=== PATIENT | male | born 1945 | race Caucasian/White ===

== ENCOUNTER 2018-04-05 01:23 | Outpatient (CLI) | payer MEDICARE, BC, SELFPAY ==
--- NOTE | 2018-04-05 09:00 | DI.RAD_ITS ---
SYMPTOMS/DIAGNOSIS: S/P RIGHT VIDEO-ASSISTED THORACIC SURGERY WEDGE RESECTION, ? PNEUMOTHORAX, EFFUSION OR CHANGES CHEST X-RAY, PA AND LATERAL: Comparison examination is from [facility] dated . The heart size is stable. Pulmonary vasculature is within normal limits. The left lung remains clear and well expanded without effusion or pneumothorax. There has been improvement in the opacities in the right lung with persistent linear areas likely reflecting, particularly in the lower lung field. No definite right pleural effusion is seen. No right pneumothorax is identified. Old right rib fractures are noted. IMPRESSION: Continued improvement in appearance of the right lung with probable residual scarring or atelectasis. No new infiltrates, effusions or pneumothoraces are identified.
== END 2018-04-05 01:43 ==
PROVIDERS: Visit Provider Thoracic Surgery (Cardiothoracic Vascular Surgery)
DX: J98.4 Other disorders of lung (principal); Z98.890 Other specified postprocedural states
CPT/HCPCS: 71046

== ENCOUNTER 2021-07-05 01:09 | Outpatient (CLI) | payer OTHER, SELFPAY ==
--- NOTE | 2021-07-05 10:00 | DI.MAMMO_ITS ---
Exam(s) US BREAST LT COMPLETE MAMMO DIAGNOSTIC BI EXAM: MAMMO DIAGNOSTIC BI and ultrasound breast LT complete CLINICAL HISTORY: MASTODYNIA, N64.4,LT BREAST ENLGMENT,PALPABLE LUMP/THICKENING [id number]. TECHNIQUE: Craniocaudal and mediolateral oblique Full Field Digital Mammography views with Computer Aided Diagnosis followed by Tomosynthesis and left breast ultrasound. COMPARISON: No previous for comparison. FINDINGS: Mammography/Tomosynthesis: Masses/Architectural Distortion: There is tissue seen in the retroareolar region of both breasts cons istent with gynecomastia. No masses identified. Microcalcifictions: No suspicious pleomorphic-type are seen. Skin Thickening/Nipple Retraction: None. Left complete breast US: Echotexture: Normal appearance of the glandular tissue. Shadowing: No suspicious foci. Cyst: None. Solid lesions: None seen. Ductal dilation: None. IMPRESSION: 1. Note is made of bilateral gynecomastia, left greater than right. 2. No evidence of malignancy or fluid collection/hematoma is seen. 3. The findings were discussed with the patient on the date of the examination. BI-RADS Category 2 - Benign Findings Breast Density - Category B - Scattered areas of fibroglandular density Breast density Category C or D implies that the patient has dense breast tissue. Dense breast tissue can make it harder to find cancer on a mammogram. Dense breast tissue is also associated with an incr eased risk of breast cancer. This information about the result of the mammogram report was provided to the patient to raise their awareness. Use this report when you speak with the patient about their risks for breast cancer, which includes their family history. At that time, you may recommend additional screening tests (Ultrasoun d or MRI) as these tests may add significant information. A negative radiographic report should not delay biopsy if a dominant or clinically suspicious mass is present. Up to ten percent of cancers are not identified on mammography. A negative report may reinforce clinical impression. Adenosis and dense breasts may obscure an underlying neoplasm. False positive reports average 6 to 10%. Patient will receive a letter notifying them of these results.
== END 2021-07-05 01:29 ==
PROVIDERS: Visit Provider Nurse Practitioner Primary Care
DX: N64.4 Mastodynia (principal); N62 Hypertrophy of breast; N64.59 Other signs and symptoms in breast
CPT/HCPCS: 76642; 77062; 77066; G0279

== ENCOUNTER 2022-06-12 09:53 | Inpatient (IN) | payer OTHER, SELFPAY ==
[2022-06-12] VITALS (23 sets, daily range): BP systolic 106–125; BP diastolic 53–77; PULSE 77–108; RESP 2–44; TEMP 36.8–37.3; O2SAT 81–94
--- NOTE | 2022-06-12 10:14 | RT.EKG_ITS ---
APPROVED REPORT Exam: Resting ECG Reason for Exam: sob Patient Location: E HR:95 bpm ECG Measurements Heart Rate 95 AXIS NV 154 P 38 QRSd 105 QRS -64 QT 390 T 41 QTc 491 Conclusion Sinus rhythm. MAIN, consider biatrial enlargement. LAD, consider left anterior fascicular block. Repol abnrm lateral leads...ST dep, T neg, I aVL V5 V6
--- NOTE | 2022-06-12 10:15 | DI.RAD_ITS ---
Exam(s) XR PORTABLE CHEST AP EXAM: XR PORTABLE CHEST AP CLINICAL HISTORY: cough, recent PNA TECHNIQUE: 2D digital imaging was performed of the chest. One image was obtained. An AP view was ob tained. COMPARISON: CR XR CHEST 2V PA LATERAL from 04/05/2018 FINDINGS: MEDIASTINUM: Normal. HEART: Normal. PULMONARY VASCULATURE: Normal. LUNGS: There is a multifocal infiltrate present with relative sparing of the left upper lobe. PLEURAL SPACE: No pleural effusion or pneumothorax. BONE:Within normal limits for the patient's age. OTHER FINDINGS:Normal. IMPRESSION: Multifocal pneumonia. DATA REPOSITORY: RADIATION DOSE DELIVERED:
--- NOTE | 2022-06-12 10:27 | W.ED.GENAD ---
Discharge Plan Disposition Patient Disposition: Admit to [facility] Condition: Stable Discharge Details Clinical Impression: Pneumonia Primary Care Provider: Unknown,Unknown ED Provider: Ray Love Home Meds and New Rx's Prescriptions: No Action aspirin [Aspir-81] 81 MG tablet,delayed release (DR/EC) 81 mg PO DAILY trazodone 100 MG tablet 150 mg PO HS fluoxetine 20 MG capsule 40 mg PO DAILY metoprolol tartrate 25 MG tablet 12.5 mg PO BID simvastatin 10 MG tablet 10 mg PO DAILY clopidogrel [Plavix] 75 MG tablet 75 mg PO DAILY warfarin 5 MG tablet 5 mg PO DIRECTED Label Comments: 07/23/15- pt has variable dose amoxicillin-pot clavulanate 1 TAB tablet 1 ea PO BID Qty: 14 0RF Medical Decision Making This is a 76-year-old male who states he was seen at an outlying institution approximately 3 weeks ago and diagnosed with pneumonia. He was given 2 antibiotics and a burst of prednisone. He states that he lost approximately 4 days of the antibiotics but otherwise finished that treatment, felt better for approximately 1 week, now has days of recurrent cough, congestion, shortness of breath and exertional intolerance. He has a history of COPD on home oxygen of 3 L and typically has oxygenation approximately 88%. He arrives to the ER with a temp of 37, blood pressure 106/64, pulse in the 90s, respiratory rate 26-30 and oxygenating 88% on 5 L nasal cannula. His exam reveals increased work of breathing, rhonchi and end expiratory wheeze present. Differential gnosis includes COPD exacerbation, recurrent pneumonia. Patient had IV access established, given steroids, DuoNeb updraft and referred for laboratory testing and chest x-ray. White blood cell count is elevated at 22, hematocrit 37, platelets 326. There is left shift present. Electrolytes are unremarkable, renal function within normal limits and LFTs within normal limits as well. Troponin negative. SARS-CoV-2/influenza/RSV swabs are negative. Chest x-ray reveals bilateral infiltrates present. Given patient's chronic disease, recent partial treatment with antibiotics, I have initiated parenteral antibiotics with Zosyn. HPI General Mode of arrival: ambulatory. Date/Time Provider Initiated Documentation: 06/12/22 10:20. Limitations to Documentation: no limitations. Information obtained by: patient and family. History of Present Illness 76 year old M presents to the emergency department with the chief complaint of Cough and shortness of breath, described as moderate, Quality is described as dull, and is localized to the chest. Patient reports no radiation. Patient started experiencing this day(s) and it has been intermittent. Rest improves symptom(s), Movement worsens symptoms . Patient notes cough and shortness of breath; denies chest pain and fever/chills. Patient did receive the following treatments prior to arrival, none Related Data Home Medications Medication Instructions Recorded Confirmed aspirin 81 mg tablet,delayed 81 mg PO DAILY 03/22/15 06/12/22 release (Aspir-) fluoxetine 20 mg capsule 40 mg PO DAILY 03/22/15 06/12/22 metoprolol tartrate 25 mg tablet 12.5 mg PO BID 03/22/15 06/12/22 trazodone 100 mg tablet 150 mg PO HS 03/22/15 06/12/22 clopidogrel 75 mg tablet (Plavix) 75 mg PO DAILY 07/23/15 06/12/22 simvastatin 10 mg tablet 10 mg PO DAILY 07/23/15 06/12/22 warfarin 5 mg tablet 5 mg PO DIRECTED 07/23/15 06/12/22 amoxicillin 875 mg-potassium 1 ea PO BID #14 tabs 10/13/16 clavulanate 125 mg tablet Previous Rx's Medication Instructions Recorded amoxicillin 875 mg-potassium 1 ea PO BID #14 tabs 10/13/16 clavulanate 125 mg tablet Allergies Allergy/AdvReac Type Severity Reaction Status Date / Time No Known Allergies Allergy Unverified 06/12/22 10:10 General Stated Complaint: SOB MADDIE: 3 Review of Systems Narrative: 8 systems reviewed and otherwise negative, recently finished 10 days of antibiotics and burst of prednisone, finished approximate 2 weeks ago. PFSH All Active Problems (Updated 06/12/22 @ 11:49 by Ray Love MD) Pneumonia (Acute) Social History Smoking/Tobacco Use Status: Former Tobacco Use Smoking risk assessment performed?: Yes Alcohol Intake: never Drug use: Never Do you feel safe at home: Yes Do you feel safe in your relationship?: Yes Exam Narrative Exam Narrative: GEN: awake, alert, oriented 3. Pleasant, well groomed, interactive. HEAD: Normocephalic, atraumatic ENT: Mucous membranes moist, oropharynx unremarkable, External ear exam unremarkable EYES: PERRL, EOMI NECK: Full ROM, no TARAN, no menigismus CHEST/RESP: Nontender, bilateral end expiratory wheeze, increased work of breathing, tachypnea present CARDIOVASCULAR: Regular and tachycardic, no murmur, rub evangelina. 2+ Rad pulse bilateral ABDOMEN: Soft, nontender, no mass. +Bowel sounds EXT: Full ROM, no edema, no rash Neuro: Grossly normal neurologic exam, conversant, interactive. Psych: Speech fluent, thoughts congruent, affect normal Course Vital Signs Vital signs: Vital Signs Temperature 37.0 C 06/12/22 10:05 Pulse 98 H 06/12/22 10:05 Respiratory Rate 26 H 06/12/22 10:05 Blood Pressure 106/64 06/12/22 10:05 Pulse Oximetry 88 L 06/12/22 10:05 Temperature 37.0 C 06/12/22 10:05 Temperature Source Tympanic 06/12/22 10:05 Pulse 98 H 06/12/22 10:05 Respiratory Rate 30 H 06/12/22 10:19 Respiratory Effort 06/12/22 10:19 Respiratory Depth Shallow 06/12/22 10:19 Respiratory Pattern Tachypnea 06/12/22 10:19 Blood Pressure 106/64 06/12/22 10:05 Blood Pressure Position Sitting 06/12/22 10:05 Pulse Oximetry 88 L 06/12/22 10:05 Oxygen Delivery Method Nasal Cannula 06/12/22 10:05 Oxygen Flow Rate 3 06/12/22 10:05 Pain Level 0 06/12/22 10:05
[2022-06-12 10:36] LABS: Abs Immature Grans 0.56 10^3/uL (0.0-0.06); Absolute Eosinophil Count 0.02 10^3/uL (0.0-0.7); Absolute Lymphocyte Count 1.65 10^3/uL (1.2-3.4); Basophils % 0.5; Eosinophils % 0.1; HCT 37.2 % (40.0-50.0); HGB 12.3 g/dL (13.5-17.5); Immature Grans % 2.5; Lymphocytes % 7.4; MCH 30.4 pg (27.0-33.0); MCHC 33.1 % (32.0-36.0); MCV 92 fL (80-95); MPV 9.5 fL (8.0-11.0); Monocytes % 4.8; Neutrophils % 84.7; Platelet Count 326 10^3/uL (130-400); RBC 4.04 10^6/uL (4.36-5.78); RDW 17.3 % (11.8-14.1); RDW-SD 58.5 fL; WBC 22.35 10^3/uL (4.4-10.8)
[2022-06-12 10:44] LABS: Absolute Basophil Count 0.11 10^3/uL (0.0-0.2); Absolute Monocyte Count 1.07 10^3/uL (0.1-0.8); Absolute Neutrophil Count 18.93 10^3/uL (1.2-6.7)
[2022-06-12 10:59] LABS: ALT 18 U/L (16-63); AST 28 U/L (15-37); Alkaline Phosphatase 88 U/L (46-116); Anion Gap 8.1 mmol/L (3-11); BUN 18 mg/dL (7-18); Bilirubin, Total 0.6 mg/dL (0.2-1.0); CO2 27.9 mmol/L (21.0-32.0); Calcium 8.4 mg/dL (8.5-10.1); Chloride 100 mmol/L (98-107); Estimated GFR 78.49 (mL/min/1.73m2); Glucose 103 mg/dL (74-106); Magnesium 2.2 mg/dL (1.8-2.4); Sodium 136 mmol/L (136-145); Total Protein 7.3 g/dL (6.4-8.2); Troponin I < 50 ng/L (<or=60)
[2022-06-12] MEDS: methylPREDNISolone SUCC 125 MG VIAL IVP (11:04)
[2022-06-12] MEDS: Albuterol/Ipratropium 3 ML UPD VIAL UPD ×4 (11:04→19:41)
[2022-06-12 11:13] LABS: COVID-19 PCR Negative (Negative); Influenza A PCR Negative (Negative); Influenza B PCR Negative (Negative); RSV PCR Negative (Negative); Source Nasopharynx
[2022-06-12] MEDS: Normal Saline Flush 10 ML SYR IVP ×2 (11:13→19:59)
[2022-06-12 11:27] LABS: Diff Comment Agrees w/ Instrument; RBC Morphology Normal
[2022-06-12] MEDS: PIPERACILLIN/TAZO 3.375 GM in Normal Saline 50 ML IVPB ×3 (11:55→23:16)
[2022-06-12 11:56] LABS: INR 1.2 (0.9-1.1); Prothrombin Time 12.3 sec (9.3-11.0)
[2022-06-12] MEDS: Azithromycin 250 MG TAB 500 MG PO (12:40)
--- NOTE | 2022-06-12 14:59 | HPE_ITS ---
Date of service: 06/12/22 Time of Service: 14:59 Assessment and Plan Assessment and plan (1) Acute and chronic respiratory failure with hypoxia: Status: Acute Assessment and plan: patient is chronically on 2 lpm at rest and 3 lpm w/ activity. He has not had an updated PFT but reports he was scheduled for one to be done in the home until he became ill. I will continue aggressive bronchodilators, pulmonary toiletery and antibiotics as listed below. Patient states he has an advanced directive which his daughter will bring from home. He has indicated that he does not want to be put on life support or have CPR in the event of cardiopulmonary arrest. Critical care time spent interviewing and examining the patient, reviewing studies, discussing case with patient's nurse and consulting physicians was 60 minutes (2) Pneumonia: Status: Acute Assessment and plan: patient recently treated for CAP w/ Augmentin and doxycycline x 7 days back in mid April but recently developed worsening respiratory symptoms of cough and dyspnea greater than his normal (on a good day he states that he is able to take his oxygen off and carry firewood into the home and fill his wood burner stove) however for past week he has been weak, dyspneic w/ minimal activity w/ increasing cough that has become productive of purulent sputum but denies any fever. He has xray evidence of multifocal pneumonia. I agree w/ Dr. Love's choice of Zosyn given his underlying COPD and recent failure of outpatient antibiotics. Patient reports that he was fully immunized for pneumonia and influenza and COVID-19. I recommended addition of azithromycin for coverage of atypical organisms and have adjusted his Zosyn dose. We will attempt sputum culture and get urine for legionella and strep antigen. Aggressive pulmonary toiletry, short course of corticosteroids and scheduled bronchodilator aerosols. [facility] (3) COPD (chronic obstructive pulmonary disease): Status: Chronic Assessment and plan: as above (4) Atherosclerotic peripheral vascular disease: Status: Chronic Assessment and plan: we will try to get pharmacy to reconcile his home meds so we can reorder his anticoagulant. from the external pharmacy search it appears that he is on Xarelto History of Present Illness History of Present Illness Chief Complaint: dyspnea, cough and hypoxia Review of Systems Constitutional Constitutional: Denies chills, Reports fatigue, Denies fever(s), Reports lethargy and Reports poor appetite Eyes Eyes: Reports system reviewed and no additional complaints, except as documented and Reports requires corrective lenses ENT Ears, Nose, Mouth, and Throat: Reports system reviewed and no additional complaints, except as documented Cardiovascular Cardiovascular: Denies chest pain, Denies syncope, Denies pedal edema, Denies leg edema, Reports dyspnea and Reports dyspnea on exertion Respiratory Respiratory: Reports as per HPI, Reports change in phlegm color, Reports chest congestion, Reports cough, Reports excessive phlegm production, Reports dyspnea and Reports dyspnea on exertion Gastrointestinal Gastrointestinal: Reports system reviewed and no additional complaints, except as documented Genitourinary Genitourinary: Reports system reviewed and no additional complaints, except as documented Musculoskeletal Musculoskeletal: Reports system reviewed and no additional complaints, except as documented Integumentary/Breasts Skin/Breast: Reports system reviewed and no additional complaints, except as documented Neurologic Neurologic: Reports system reviewed and no additional complaints, except as documented and Denies syncope Psychiatric Psychiatric: Reports depression Endocrine Endocrine: Reports fatigue Allergic/Immunologic Allergic/Immunologic: Reports system reviewed and no additional complaints, except as documented PFSH All Active Problems (Updated 06/12/22 @ 15:42 by Rian Dexter MD) Acute and chronic respiratory failure with hypoxia (Acute) Depression (Chronic) Atherosclerotic peripheral vascular disease (Chronic) COPD (chronic obstructive pulmonary disease) (Chronic) on home oxygen at 2 to 3 LPM Pneumonia (Acute) Medical History (Updated 06/12/22 @ 15:42 by Rian Dexter MD) Agent orange exposure NHL (non-Hodgkin's lymphoma) Surgical History (Updated 06/12/22 @ 15:32 by Rian Dexter MD) S/P femoral-popliteal bypass surgery S/P lobectomy of lung benign lung nodule Social History (Updated 06/12/22 @ 15:34 by Rian Dexter MD) Smoking/Tobacco Use Status: Former Tobacco Use tobacco type: cigarettes Quit Date: 05/28/15 Pack-years: 100 Tobacco: How many years used: 50 Smoking risk assessment performed?: Yes Alcohol Intake: former Drug use: Never Substance use type: does not use Household members: none Housing: house Number of Children: 2 What is your relationship status?: Panel score (0-1 are the most socially isolated patients): 0 Do you feel safe at home: Yes Do you feel safe in your relationship?: Yes Meds Allergies and Home Medications Allergies Allergy/AdvReac Type Severity Reaction Status Date / Time No Known Allergies Allergy Unverified 06/12/22 10:10 Home Medications Medication Instructions Recorded Confirmed Type aspirin 81 mg tablet,delayed 81 mg PO DAILY 03/22/15 06/12/22 History release (Aspir-) fluoxetine 20 mg capsule 40 mg PO DAILY 03/22/15 06/12/22 History metoprolol tartrate 25 mg tablet 12.5 mg PO BID 03/22/15 06/12/22 History trazodone 100 mg tablet 150 mg PO HS 03/22/15 06/12/22 History clopidogrel 75 mg tablet (Plavix) 75 mg PO DAILY 07/23/15 06/12/22 History simvastatin 10 mg tablet 10 mg PO DAILY 07/23/15 06/12/22 History warfarin 5 mg tablet 5 mg PO DIRECTED 07/23/15 06/12/22 History amoxicillin 875 mg-potassium 1 ea PO BID #14 tabs 10/13/16 Rx clavulanate 125 mg tablet Exam Narrative Exam Narrative: Elderly white male with curtis complexion to his face wears glasses he is alert and oriented person place time circumstance he is mildly dyspneic with moderate conversation but able to answer questions in full sentences. He is using accessory respiratory muscles. HEENT oropharynx noninjected no exudate he has upper dentures he has a few lower teeth that are in poor to fair repair no exudates Neck is supple he has overt external jugular venous distention but no internal jugular distention normal carotid pulses no bruits Lungs with diffuse scattered bilateral expiratory wheezes and rhonchi Heart is regular but tachycardic no murmur rub no thrill heave or gallop Abdomen is obese soft and nontender no palpable masses or bruits Lower extremities without peripheral cyanosis or edema does have scars over both legs from previous femoropopliteal bypass he has palpable pedal pulses no open s ores well-healed scars in both legs Neuro exam grossly intact no focal motor or sensory deficits no focal cranial nerve deficits Results Imaging Chest x-ray: image reviewed (multilobar pneumonia RL>LL) EKG: image reviewed (SR, much baseline artifact; really uninterpretable from ischemic standpoint) Labs Result diagrams: 06/12/22 10:30 06/12/22 10:30 Labs: Laboratory Results - last 24 hr 06/12/22 06/12/22 06/12/22 10:30 10:30 10:30 WBC 22.35 H RBC 4.04 L Hgb 12.3 L Hct 37.2 L MCV 92 MCH 30.4 MCHC 33.1 RDW 17.3 H Plt Count 326 MPV 9.5 Immature Gran % 2.5 Neutrophils % 84.7 Lymphocytes % 7.4 Monocytes % 4.8 Eosinophils % 0.1 Basophils % 0.5 Nucleated RBC % 0.0 Absolute Neutrophils 18.93 H Absolute Lymphocytes 1.65 Absolute Monocytes 1.07 H Absolute Eosinophils 0.02 Absolute Basophils 0.11 RBC Morphology Normal PT 12.3 H INR 1.2 H Sodium 136 Potassium 4.0 Chloride 100 Carbon Dioxide 27.9 Anion Gap 8.1 BUN 18 Creatinine 1.0 Est GFR (CKD-EPI 2020) 78.49 Glucose 103 Calcium 8.4 L Magnesium 2.2 Total Bilirubin 0.6 AST 28 ALT 18 Alkaline Phosphatase 88 Troponin I < 50 Total Protein 7.3 Albumin 2.0 L COVID-19 Source SARS-CoV-2 (PCR) Influenza Type A (PCR) Influenza Type B (PCR) RSV (PCR) 06/12/22 10:32 WBC RBC Hgb Hct MCV MCH MCHC RDW Plt Count MPV Immature Gran % Neutrophils % Lymphocytes % Monocytes % Eosinophils % Basophils % Nucleated RBC % Absolute Neutrophils Absolute Lymphocytes Absolute Monocytes Absolute Eosinophils Absolute Basophils RBC Morphology PT INR Sodium Potassium Chloride Carbon Dioxide Anion Gap BUN Creatinine Est GFR (CKD-EPI 2020) Glucose Calcium Magnesium Total Bilirubin AST ALT Alkaline Phosphatase Troponin I Total Protein Albumin COVID-19 Source Nasopharynx SARS-CoV-2 (PCR) Negative Influenza Type A (PCR) Negative Influenza Type B (PCR) Negative RSV (PCR) Negative Last Vital Signs Temp 37.3 C 06/12/22 14:00 Pulse 96 H 06/12/22 14:00 Resp 24 06/12/22 14:00 BP 119/53 L 06/12/22 14:00 Pulse Ox 88 L 06/12/22 14:00 Time Spent Time spent with Patient: 55-74 minutes Time was spent: preparing to see the patient(eg.review tests), obtaining and/or reviewing separately otained hiistory, ordering medications,tests, procedures, referring, communicating with other health home care companion (Discussion with ED provider Dr. Ray Love), indepentently interpreting results, counseling the patient, care coordination and other (Interviewing his daughter as well as the patient)
--- NOTE | 2022-06-12 15:28 | RESPIRATORY ---
Pt's [facility] Pt has a concentrator and portable tanks at home, does not have one here with him.
[2022-06-12 16:18] LABS: Lab Add On Test DONE
[2022-06-12 17:00] LABS: Procalcitonin 2.9 ng/mL
[2022-06-12] MEDS: guaiFENesin 600 MG TABCR PO (19:59)
--- NOTE | 2022-06-12 20:43 | TELEP.MEDR_ITS ---
Date of service: 06/12/22 Time of Service: 20:43 [facility] Allergies Allergies: No Known Allergies Allergy (Unverified 06/12/22 10:10) Interview Person Interviewed: * Patient Quality Quality of Interview/Accuracy of Medication List: Good Sources Sources used to compile medication list: [facility] Medication List and Retail Pharmacy Changes made to Home Medication List: ADDITIONS: * Tylenol 1000mg po every 6 hours prn * Xarelto 20mg po daily * Ventolin inhaler inhale 2 puffs every 6 hours prn * Advair 250/50mcg inhale 1 puff bid * Spiriva 2.5mcg/puff inhale 2 puffs daily DELETIONS: * Augmentin * Trazodone * Warfarin CHANGES: * Prozac 20mg po daily Additional Notes Additional Notes: * Updated medication list with information provided by patient. Per patient report didnt take medications on 06/12/22 prior to arrival to hospital. Used information from patient and information from [place] med list to complete med rec. Recommended Changes Recommended Changes(reason for recommendation): * None Attestation: The home medication list is now updated to the best of my knowledge and is ready to be reconciled by the provider. Please contact the [facility] Medication Reconciliation Pharmacist at for any questions.
--- NOTE | 2022-06-12 20:43 | TELEP.MEDREC ---
Date of service: 06/12/22 Time of Service: 20:43 [facility] Allergies Allergies: No Known Allergies Allergy (Unverified 06/12/22 10:10) Interview Person Interviewed: Patient Quality Quality of Interview/Accuracy of Medication List: Good Sources Sources used to compile medication list: [employer] Medication List and Retail Pharmacy Changes made to Home Medication List: ADDITIONS: Tylenol 1000mg po every 6 hours prn Xarelto 20mg po daily Ventolin inhaler inhale 2 puffs every 6 hours prn Advair 250/50mcg inhale 1 puff bid Spiriva 2.5mcg/puff inhale 2 puffs daily DELETIONS: Augmentin Trazodone Warfarin CHANGES: Prozac 20mg po daily Additional Notes Additional Notes: Updated medication list with information provided by patient. Per patient report didnt take medications on 06/12/22 prior to arrival to hospital. Used information from patient and [facility] to complete med rec. Recommended Changes Recommended Changes(reason for recommendation): None Attestation: The home medication list is now updated to the best of my knowledge and is ready to be reconciled by the provider. Please contact the [facility] Medication Reconciliation Pharmacist at for any questions.
[2022-06-12] MEDS: Metoprolol 12.5 MG TAB PO (22:32)
[2022-06-12] MEDS: Simvastatin 20 MG TAB 10 MG PO (22:32)
[2022-06-12 22:55] LABS: Legionella Ag Detection Urine Negative (Negative)
[2022-06-13] VITALS (90 sets, daily range): BP systolic 99–124; BP diastolic 46–74; PULSE 58–89; RESP 4–36; TEMP 36.3–36.9; O2SAT 77–97
[2022-06-13] MEDS: Albuterol 2.5 MG/3 ML INH SOLN VIAL UPD ×2 (01:10→05:51)
[2022-06-13 05:28] LABS: BE (Venous) 3 mmol/L (-2-3); HCO3 (Venous) 27 mmol/L (23-28); O2 Sat (Venous) 91 %; TCO2 (Venous) 25 mmol/L (24-29); pCO2 (Venous) 42 mmHg (41-51); pH (Venous) 7.42 (7.31-7.41); pO2 (Venous) 61 mmHg
[2022-06-13 05:31] LABS: Abs Immature Grans 0.35 10^3/uL (0.0-0.06); Absolute Neutrophil Count 14.77 10^3/uL (1.2-6.7); Basophils % 0.4; HCT 33.9 % (40.0-50.0); HGB 11.4 g/dL (13.5-17.5); Immature Grans % 2.1; Lymphocytes % 6.3; MCH 30.7 pg (27.0-33.0); MCHC 33.6 % (32.0-36.0); MCV 91 fL (80-95); MPV 9.5 fL (8.0-11.0); Monocytes % 2.3; Neutrophils % 88.9; Platelet Count 316 10^3/uL (130-400); RBC 3.71 10^6/uL (4.36-5.78); RDW 17.2 % (11.8-14.1); RDW-SD 58.1 fL; WBC 16.61 10^3/uL (4.4-10.8)
[2022-06-13 05:37] LABS: Absolute Basophil Count 0.07 10^3/uL (0.0-0.2); Absolute Lymphocyte Count 1.05 10^3/uL (1.2-3.4); Absolute Monocyte Count 0.38 10^3/uL (0.1-0.8)
[2022-06-13 05:47] LABS: ALT 23 U/L (16-63); AST 36 U/L (15-37); Albumin 1.8 g/dL (3.4-5.0); Alkaline Phosphatase 78 U/L (46-116); Anion Gap 7.9 mmol/L (3-11); BUN 22 mg/dL (7-18); Bilirubin, Total 0.4 mg/dL (0.2-1.0); CO2 27.1 mmol/L (21.0-32.0); Calcium 8.3 mg/dL (8.5-10.1); Chloride 104 mmol/L (98-107); Estimated GFR 78.49 (mL/min/1.73m2); Glucose 183 mg/dL (74-106); Potassium 4.2 mmol/L (3.5-5.1); Sodium 139 mmol/L (136-145); Total Protein 6.9 g/dL (6.4-8.2)
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
[2022-06-13] MEDS: Tiotropium Bromide-Respimat 10 PUFF INH 2 PUFF IH (07:56)
[2022-06-13] MEDS: Budesonide/Formoterol 160/4.5 6 GM 60 PUFF INH IH ×2 (07:56→20:09)
[2022-06-13] MEDS: Albuterol/Ipratropium 3 ML UPD VIAL UPD ×4 (07:57→19:13)
[2022-06-13] MEDS: Aspirin E.C. 81 MG TABEC PO (08:37)
[2022-06-13] MEDS: predniSONE 20 MG TAB 60 MG PO (08:37)
[2022-06-13] MEDS: Clopidogrel 75 MG TAB PO (08:37)
[2022-06-13] MEDS: FLUoxetine 20 MG CAP PO (08:37)
[2022-06-13] MEDS: guaiFENesin 600 MG TABCR PO ×2 (08:38→19:12)
[2022-06-13] MEDS: PIPERACILLIN/TAZO 3.375 GM in Normal Saline 50 ML IVPB ×2 (08:38→16:53)
[2022-06-13] MEDS: Metoprolol 12.5 MG TAB PO ×2 (08:38→19:12)
--- NOTE | 2022-06-13 09:03 | INITIAL_ITS ---
- If Service Date Differs Date of service: 06/13/22 Time of Service: 09:03 Care Management Initial Assess REASON FOR HOSPITALIZATION:: acute and chronic respiratory failure PAST MEDICAL HISTORY/PAST SURGICAL HISTORY:: All Active Problems (Updated 06/12/22 @ 15:42 by Rian Dexter MD). Acute and chronic respiratory failure with hypoxia (Acute). Depression (Chronic). Atherosclerotic peripheral vascular disease (Chronic). COPD (chronic obstructive pulmonary disease) (Chronic). on home oxygen at 2 to 3 LPM. Pneumonia (Acute). Medical History (Updated 06/12/22 @ 15:42 by Rian Dexter MD). Agent orange exposure. NHL (non-Hodgkin's lymphoma). Surgical History (Updated 06/12/22 @ 15:32 by Rian Dexter MD). S/P femoral-popliteal bypass surgery. S/P lobectomy of lung. benign lung nodule PREVIOUS FUNCTIONAL STATUS/SOCIAL/FAMILY SUPPORTS:: Cayetano lives alone in a single family home in [place]. He has 2 children; he has a son Anel who lives in [place] and a daughter Tata who lives close to him. He stated that he and his daughter are very close and that she is supportive. [facility]ano is [facility]. His primary care doctor is Jazmyn Rodriguez out of [place]. He uses home oxygen at 3L at baseline which is provided by the [facility]. CURRENT FUNCTIONAL STATUS:: Cayetano was sitting up in a chair visiting with Tata when CM met with him. He was polite and willing to enage in conversation. Cayetano informed CM that he is [facility] connected and receives [facility] at [facility].He asked that CM contact the clinic to ensure they are aware of his admission and to ensure they have approved a non-[facility] stay. A message was left with the [facility] by to obtain the above verificatiobn. ADVANCE DIRECTIVES:: none on file Has patient been provided with info about the portal/API?: Yes Did the patient sign up for the portal?: No CODE STATUS:: DNR/DNI INSURANCE COVERAGE / FINANCIAL ISSUES:: [facility] CURRENT HOME/COMMUNITY SERVICES/EQUIPMENT:: home oxygen provided by [facility] PRIMARY CARE PHYSICIAN:: Jazmyn Rodriguez. [facility] POTENTIAL DISCHARGE NEEDS:: follow up [facility] community providers PATIENT/FAMILY EDUCATION NEEDS:: Review of discharge instructions, limitations, activity, follow up plan, Ask me Three TRANSPORTATION:: via private vehicle with family PLAN:: Cayetano will likely discharge home with no new services. He will follow up with his community providers and plan of care and transport with family.CM will continue to offer support to Cayetano and assess for discharge planning needs.
--- NOTE | 2022-06-13 09:09 | PGE_ITS ---
Date of Service Date of service: 06/13/22 Time of Service: 09:09 Assessment and Plan Assessment and plan (1) Acute and chronic respiratory failure with hypoxia: Status: Acute Assessment and plan: Secondary to underlying COPD with superimposed community-acquired pneumonia. Continue Zosyn and azithromycin. Urine Legionella antigen was negative urine strep antigen is pending at this time. Patient produced a sputum this morning which was sent for gram stain and culture. Continue aerosolized DuoNeb bronchodilators 4 times daily while awake along with as needed albuterol for acute bronchospasm and dyspnea. Now that his medications have been reconciled I resumed his Advair and his Spiriva. Encourage pulmonary toiletry with use of I- S and acapella. Professional time spent interviewing and examining patient, discussion of goals of care with hospital team (care management, nursing and consulting professionals) was 30 minutes. (2) Pneumonia: Status: Acute Assessment and plan: As above (3) COPD (chronic obstructive pulmonary disease): Status: Chronic Assessment and plan: as above (4) Atherosclerotic peripheral vascular disease: Status: Chronic Assessment and plan: Continue his Eliquis as and Plavix and aspirin patient was not on any GI protection and allegedly had black looking stools. We will monitor his stools for occult blood and I put him on Protonix 40 mg daily. (5) Melena: Status: Suspected Assessment and plan: Patient reports he has had melanotic stools for couple weeks. The only time he seen overt blood in his occasionally when he wipes which sound suspicious for hemorrhoids. Nevertheless we will monitor his stool for occult blood monitor his H&H and if put him on a PPI for GI prophylaxis given his need for multiple anticoagulants and antiplatelets for his PAD. (6) Generalized weakness: Status: Acute Assessment and plan: Secondary to exacerbation of his COPD and his pneumonia. We will request physical therapy consultation and have nursing get him up out of bed to get him more mobile. (7) DVT prophylaxis: Status: Acute Assessment and plan: Patient is chronically on rivaroxaban (8) Discharge planning issues: Status: Acute Assessment and plan: Patient intends to return home once he is medically stable. He may or may not need home health services upon discharge that will be determined by physical therapy prior to discharge. Patient is a DNR/DNI per his request. Family is bringing in his copy of his advance directives Subjective Subjective Interval history since last seen: Patient states that he is feeling somewhat better, less dyspnea. Still w/ harsh cough w/ minimal sputum production this morning. He is afebrile, still hypoxic w/ SPO2 of 85% on 3 lpm when he is not having paroxysms of coughing. Exam Narrative Exam Narrative: Plethoric appearing elderly white male who sitting up breathing and newspaper with intermittent paroxysms of coughing Lungs with scattered expiratory wheezes and rhonchi Heart is regular rate and rhythm Abdomen soft nontender obese nondistended normal bowel sounds Lower extremities without peripheral cyanosis or edema he has bilateral scars from previous femoropopliteal bypass feet are warm and dry with good capillary refill and palpable posterior tibialis pulses Objective Last Vital Signs Temp 36.4 C L 06/13/22 07:41 Pulse 87 06/13/22 08:44 Resp 24 06/13/22 08:44 BP 121/64 06/13/22 08:44 Pulse Ox 87 L 06/13/22 08:44 Laboratory Results - last 24 hr 06/12/22 06/12/22 06/12/22 10:30 10:30 10:30 WBC 22.35 H RBC 4.04 L Hgb 12.3 L Hct 37.2 L MCV 92 MCH 30.4 MCHC 33.1 RDW 17.3 H Plt Count 326 MPV 9.5 Immature Gran % 2.5 Neutrophils % 84.7 Lymphocytes % 7.4 Monocytes % 4.8 Eosinophils % 0.1 Basophils % 0.5 Nucleated RBC % 0.0 Absolute Neutrophils 18.93 H Absolute Lymphocytes 1.65 Absolute Monocytes 1.07 H Absolute Eosinophils 0.02 Absolute Basophils 0.11 RBC Morphology Normal PT 12.3 H INR 1.2 H VBG pH VBG pCO2 VBG pO2 VBG HCO3 VBG Total CO2 VBG O2 Saturation VBG Base Excess Sodium 136 Potassium 4.0 Chloride 100 Carbon Dioxide 27.9 Anion Gap 8.1 BUN 18 Creatinine 1.0 Est GFR (CKD-EPI 2020) 78.49 Glucose 103 Calcium 8.4 L Magnesium 2.2 Total Bilirubin 0.6 AST 28 ALT 18 Alkaline Phosphatase 88 Troponin I < 50 Total Protein 7.3 Albumin 2.0 L Procalcitonin COVID-19 Source SARS-CoV-2 (PCR) Influenza Type A (PCR) Influenza Type B (PCR) Urine Legionella Ag RSV (PCR) Add-On Test Request 06/12/22 06/12/22 06/12/22 10:32 14:28 16:17 WBC RBC Hgb Hct MCV MCH MCHC RDW Plt Count MPV Immature Gran % Neutrophils % Lymphocytes % Monocytes % Eosinophils % Basophils % Nucleated RBC % Absolute Neutrophils Absolute Lymphocytes Absolute Monocytes Absolute Eosinophils Absolute Basophils RBC Morphology PT INR VBG pH VBG pCO2 VBG pO2 VBG HCO3 VBG Total CO2 VBG O2 Saturation VBG Base Excess Sodium Potassium Chloride Carbon Dioxide Anion Gap BUN Creatinine Est GFR (CKD-EPI 2020) Glucose Calcium Magnesium Total Bilirubin AST ALT Alkaline Phosphatase Troponin I Total Protein Albumin Procalcitonin COVID-19 Source Nasopharynx SARS-CoV-2 (PCR) Negative Influenza Type A (PCR) Negative Influenza Type B (PCR) Negative Urine Legionella Ag Negative RSV (PCR) Negative Add-On Test Request DONE 06/12/22 06/13/22 06/13/22 16:17 05:21 05:21 WBC 16.61 H RBC 3.71 L Hgb 11.4 L Hct 33.9 L MCV 91 MCH 30.7 MCHC 33.6 RDW 17.2 H Plt Count 316 MPV 9.5 Immature Gran % 2.1 Neutrophils % 88.9 Lymphocytes % 6.3 Monocytes % 2.3 Eosinophils % 0.0 Basophils % 0.4 Nucleated RBC % 0.0 Absolute Neutrophils 14.77 H Absolute Lymphocytes 1.05 L Absolute Monocytes 0.38 Absolute Eosinophils 0.00 Absolute Basophils 0.07 RBC Morphology PT INR VBG pH VBG pCO2 VBG pO2 VBG HCO3 VBG Total CO2 VBG O2 Saturation VBG Base Excess Sodium 139 Potassium 4.2 Chloride 104 Carbon Dioxide 27.1 Anion Gap 7.9 BUN 22 H Creatinine 1.0 Est GFR (CKD-EPI 2020) 78.49 Glucose 183 H Calcium 8.3 L Magnesium Total Bilirubin 0.4 AST 36 ALT 23 Alkaline Phosphatase 78 Troponin I Total Protein 6.9 Albumin 1.8 L Procalcitonin 2.9 COVID-19 Source SARS-CoV-2 (PCR) Influenza Type A (PCR) Influenza Type B (PCR) Urine Legionella Ag RSV (PCR) Add-On Test Request 06/13/22 05:21 WBC RBC Hgb Hct MCV MCH MCHC RDW Plt Count MPV Immature Gran % Neutrophils % Lymphocytes % Monocytes % Eosinophils % Basophils % Nucleated RBC % Absolute Neutrophils Absolute Lymphocytes Absolute Monocytes Absolute Eosinophils Absolute Basophils RBC Morphology PT INR VBG pH 7.42 H VBG pCO2 42 VBG pO2 61 VBG HCO3 27 VBG Total CO2 25 VBG O2 Saturation 91 VBG Base Excess 3 Sodium Potassium Chloride Carbon Dioxide Anion Gap BUN Creatinine Est GFR (CKD-EPI 2020) Glucose Calcium Magnesium Total Bilirubin AST ALT Alkaline Phosphatase Troponin I Total Protein Albumin Procalcitonin COVID-19 Source SARS-CoV-2 (PCR) Influenza Type A (PCR) Influenza Type B (PCR) Urine Legionella Ag RSV (PCR) Add-On Test Request Time Spent with Patient Time Spent with Patient: 25-34 minutes Time was spent: preparing to see the patient(eg.review tests), obtaining and/or reviewing separately otained hiistory, ordering medications,tests, procedures, referring, communicating with other health childcare center administrator, indepentently interpreting results and care coordination
--- NOTE | 2022-06-13 10:23 | IN_ITS ---
Date of service: 06/13/22 Time of Service: 10:23 PT Notes Visit Reasons: Pneumonia,Acute Hypoxic Respiratory Failure Physical Therapy Inpatient Initial Evaluation Date: 06/13/2022 Referring Doctor: Rian Hill MD PT Orders: PT CONSULT: Exacerbation Chroninc Cond Precautions: Fall. Standard. Activity as tolerated. On chronic oxygen supplementation via NC. Patient Profile/Admitting Diagnosis: Cayetano is a 76-year-old male who presented to the ED on 06/12/2022 due to recurrent cough, congestion, and shortness of breath. Patient was diagnosed with pneumonia 3 weeks ago and was given antibiotic and steroid management but reportedly missed 4 days of antibiotic treatment. Patient is diagnosed with acute on chronic respiratory failure with hypoxia, pneumonia, COPD, atherosclerotic PVD, melena, and generalized weakness. PMHX: All Active Problems?(Updated 06/12/22 @ 15:42 by Rian Dexter MD) Acute and chronic respiratory failure with hypoxia (Acute) Depression (Chronic) Atherosclerotic peripheral vascular disease (Chronic) COPD (chronic obstructive pulmonary disease) (Chronic) on home oxygen at 2 to 3 LPM Pneumonia (Acute) Medical History?(Updated 06/12/22 @ 15:42 by Rian Dexter MD) Agent orange exposure NHL (non-Hodgkin's lymphoma) Surgical History?(Updated 06/12/22 @ 15:32 by Rian Dexter MD) S/P femoral-popliteal bypass surgery S/P lobectomy of lung benign lung nodule Social History/Home Situation: Lives alone in a private home with 2 steps to enter. Daughter and son live close by and have been good support. Patient is independent without assistive device indoors, uses bilateral crutches for outdoor ambulation. On chronic supplemental 2 L of oxygen per minute via NC due to COPD Equipment Owned/DME: Oxygen supplementation, bilateral axillary crutches Subjective: Feels much better compared to yesterday. Reports normal to moderate shortness of breath with ambulation, resolved about 2 to 3 minutes of seated rest. Objective: General Observation: Supine in bed. Telemetry monitoring in place. Oxygen supplementation via NC. Mental Status: Alert and oriented as to person, place, time, and purpose. Able to pay attention, focus, and respond appropriately. Pain: Denies Vital Signs: Oxygen saturation low of 84% on 6 L during the first 50 feet of ambulation using walker; up to 86% on 4 L walking back to room. See notes under gait section. ROM: Right Upper Extremity: Shoulder Flexion WFL. Shoulder abduction WFL. Elbow flexion WFL. Wrist flexion WFL. Functional opening and closing of hand WFL. Left Upper Extremity: Shoulder Flexion WFL. Shoulder abduction WFL. Elbow flexion WFL. Wrist flexion WFL. Functional opening and closing of hand WFL. Right Lower Extremity: Hip flexion WFL. Hip abduction WFL. Knee flexion WFL. Ankle dorsiflexion WFL. Ankle plantarflexion WFL. Left Lower Extremity: Hip flexion WFL. Hip abduction WFL. Knee flexion WFL. Ankle dorsiflexion WFL. Ankle plantarflexion WFL. Strength: Right Upper Extremity: Shoulder flexors 4/5. Shoulder abductors 4/5. Elbow flexors 4/5. Elbow extensors 4/5. Internal Combustion Engine Subassembler strong. Left Upper Extremity: Shoulder flexors 4/5. Shoulder abductors 4/5. Elbow flexors 4/5. Elbow extensors 4/5. Internal Combustion Engine Subassembler strong. Right Lower Extremity: Hip flexors 4/5. Hip abductors 4/5. Knee flexors 4/5. Knee extensors 4/5. Ankle dorsiflexors 4/5. Ankle plantarflexors 4/5. Left Lower Extremity: Hip flexors 4/5. Hip abductors 4/5. Knee flexors 4/5. Knee extensors 4/5. Ankle dorsiflexors 4/5. Ankle plantarflexors 4/5. Bed Mobility/Transfers: Rolling supervision Supine to sit supervision Sit to supine standby assist Sit to stand contact-guard assist Stand to sit contact-guard assist Bed to reclining chair contact-guard assist Reclining chair to bed contact-guard assist Gait: Instructed patient with level surface ambulation of 40 feet +40 feet requiring contact guard assist with IV pole management and wheelchair follow by nurse Gregory. Kanchan decreased. Moderate shortness of breath resolved after about 3 to 4 minutes of seated rest on 6 L of oxygen per minute. Was able to maintain 87 to 88% on 4 L walking back to his room with moderate shortness of breath that took about 5 minutes of seated rest to recover. Balance: Static Sitting: Normal Dynamic Sitting: Normal Static Standing: Fair Dynamic Standing: Fair Special Tests: Mobility Limitations Standardized Measure [employer] AM-PAC 6 clicks Basic Mobility Inpatient Short Form: Raw Score: 18 CMS Score: 47% deficit Informed Consent/Education: Patient was instructed in purpose of PT consult and plan of care. Agreeable to proceed with established PT POC to achieve personal goals. Assessment: Patient requires the use of the front wheel walker for mobility ADL performance to minimize shortness of breath and hypoxic episodes while reducing risk for fall risk. Patient presents with clinical signs and symptoms consistent with current/admitting diagnoses that have resulted to mobility limitations, gait instability, generalized weakness, and overall ADL decline as demonstrated by the following impairment level findings: 1. Decreased strength to b UE/LE major muscle groups 2. Impaired sitting/standing balance 3. Impaired activity tolerance 4. Shortness of breath Impairments are contributing to the following functional limitations: 1. Difficulty with ambulation without assistive device 2. Increased completion time for mobility ADL performance 3. Increased risk for falls 4. Difficulty with managing steps alone safely Patient is assessed as a 77391 moderate complexity based on the following: History: 76-year-old female with past medical history as indicated above Examination: Demonstrable impairment in strength, balance, and mobility level with underlying impairments and functional limitations as exhibited above as well as deficit score of 47% utilizing the [facility] Mobility Inpatient Short Form Presentation: Evolving Decision Makin moderate complexity Goals: Goals X1 week 1. Supine-Sit independent 2. Sit-Supine independent 3. Sit-Stand independent 4. Stand-Sit independent with no AD 5. Bed-Chair independent with no AD 6. Chair-Bed independent with no AD 7. Independent gait on level surface with use of bilateral crutches for at least 300 feet without report of pain nor dyspnea 8. Independent stair negotiation while holding onto B rails for at least 3 steps without report of pain nor dyspnea 9. Independent with home exercise program 10. Good static and dynamic standing balance/tolerance Plan of Care/Treatment Plan: 1-2x/day, 7 days/week x 1 week. Plan of care has been reviewed with the [employer] providing the service under Physical Therapy direction. Initiate Physical Therapy intervention for pain management as needed, strengthening, bed mobility, transfers, gait, stairs, balance training, and use of assistive device. DISCHARGE RECOMMENDATIONS: [] Home with no services [] [X] Home with services. Home when medically cleared by hospitalist. Recommend home health PT services in order to progress mobility level using least restrictive assistive ambulatory device, assess home safety, identify additional equipment needs, and establish a functional maintenance program that will increase ability of patient to remain at home. [] Home with outpatient PT [] [] SNF for continued rehabilitation [] [] Long-Term Care [] [] SNF versus LTC based on ability to participate and progress [] TREATMENT CODE/TIME: [] 31791 x 20 minutes, 9753 0 x 12 minutes beginning at 10:23 AM. Thank you for the opportunity to participate in the care of this patient. Rachel Tsai PT, DPT, CLT [facility] [place], [place]
[2022-06-13] MEDS: Pantoprazole 40 MG TABCR PO (10:59)
[2022-06-13] MEDS: Benzonatate 100 MG CAP 200 MG PO (10:59)
[2022-06-13] MEDS: Lactobacillus Acidophilus CAP 1 CAP PO ×2 (10:59→19:18)
[2022-06-13] MEDS: Multivitamin TAB 1 TAB PO (10:59)
[2022-06-13] MEDS: Benzonatate 200 MG CAP PO ×2 (14:02→19:12)
[2022-06-13] MEDS: AZITHROMYCIN 500 MG in Normal Saline 250 ML 250 MG IVPB (14:02)
[2022-06-13] MEDS: Protein Nutritional Supplement 16 GM 1 OUNCE PACKET PO ×2 (14:02→19:12)
--- NOTE | 2022-06-13 14:32 | PT.INTREAT ---
Date of service: 06/13/22 Time of Service: 14:32 PT Notes Visit Reasons: Pneumonia,Acute Hypoxic Respiratory Failure Physical Therapy Inpatient Treatment Note Date: 06/13/2022 Precautions: Fall. Standard. Activity as tolerated. ? On chronic oxygen supplementation via NC. Subjective: Agreeable tto working with PT again. Objective: General Observation: Seated on bedside chair.? Telemetry monitoring in place.? Oxygen supplementation via NC. Mental Status: Alert and oriented as to person, place, time, and purpose. Able to pay attention, focus, and respond appropriately. Pain: Denies Vital Signs: Oxygen saturation low of 81% on 2 L during the first 60 feet of ambulation using walker; up to 88% on 4 L walking with continued walk.? See notes under gait section. Bed Mobility/Transfers: Rolling supervision Supine to sit supervision Sit to supine standby assist Sit to stand standby assist Stand to sit standby assist Bed to reclining standby assist Reclining chair to bed standby assist Gait: Instructed patient with level surface ambulation of 60 feet + 75 feet requiring stand by assist with IV pole management and wheelchair follow by PT. Kanchan decreased.? Moderate shortness of breath resolved after about 2 minutes of seated rest on 4 L of oxygen per minute.? Was able to maintain 86 to 887% on 4 L while walking with moderate shortness of breath that took about about 2 minutes of seated rest to resolve ? Balance: Static Sitting: Normal Dynamic Sitting: Normal Static Standing: Fair Dynamic Standing: Fair Assessment: Required less oxygen supplementation this afternoon with 4 L/minute compared to this morning's 6 L/minute. Continues to be moderately short of breath but was able to recover in about 2 minutes this session. Will continue to assess oxygen needs and educate on energy conservation techniques while on services. DISCHARGE RECOMMENDATIONS: [] ? Home with no services [] [X] ? Home with services.? Home when medically cleared by hospitalist.? Recommend home health PT services in order to progress mobility level using least restrictive assistive ambulatory device, assess home safety, identify additional equipment needs, and establish a functional maintenance program that will increase ability of patient to remain at home. [] ? Home with outpatient PT [] [] ? SNF for continued rehabilitation [] [] ? [facility] [] [] ? SNF versus LTC based on ability to participate and progress [] TREATMENT CODE/TIME: [] 90482 x 15 minutes, 43304 x 13 minutes beginning at 14:32 PM.
[2022-06-13 15:54] LABS: Streptococcus Pneumoniae Ag, U Negative (Negative)
[2022-06-13] MEDS: Rivaroxaban 10 MG TABLET 20 MG PO (16:54)
[2022-06-13] MEDS: Simvastatin 20 MG TAB 10 MG PO (19:13)
[2022-06-14] VITALS (30 sets, daily range): BP systolic 106–125; BP diastolic 59–81; PULSE 63–96; RESP 1–36; TEMP 36.3–37.1; O2SAT 76–98
[2022-06-14] MEDS: PIPERACILLIN/TAZO 3.375 GM in Normal Saline 50 ML IVPB (00:34)
[2022-06-14 05:56] LABS: Abs Immature Grans 0.39 10^3/uL (0.0-0.06); Absolute Monocyte Count 0.58 10^3/uL (0.1-0.8); Basophils % 0.3; HCT 33.8 % (40.0-50.0); Immature Grans % 2.5; MCH 30.1 pg (27.0-33.0); MCHC 32.5 % (32.0-36.0); MCV 93 fL (80-95); MPV 9.6 fL (8.0-11.0); Monocytes % 3.7; Neutrophils % 83.5; Nucleated RBC 0.1 % (0.0-0.3); Platelet Count 356 10^3/uL (130-400); RBC 3.65 10^6/uL (4.36-5.78); RDW 17.6 % (11.8-14.1); RDW-SD 59.3 fL; WBC 15.75 10^3/uL (4.4-10.8)
[2022-06-14 05:58] LABS: Absolute Basophil Count 0.05 10^3/uL (0.0-0.2); Absolute Lymphocyte Count 1.58 10^3/uL (1.2-3.4); Absolute Neutrophil Count 13.15 10^3/uL (1.2-6.7)
[2022-06-14 06:17] LABS: ALT 31 U/L (16-63); AST 42 U/L (15-37); Albumin 1.8 g/dL (3.4-5.0); Alkaline Phosphatase 79 U/L (46-116); Anion Gap 5.6 mmol/L (3-11); BUN 31 mg/dL (7-18); Bilirubin, Total 0.4 mg/dL (0.2-1.0); CO2 26.4 mmol/L (21.0-32.0); CREATININE 0.9 mg/dL (0.70-1.30); Calcium 8.2 mg/dL (8.5-10.1); Chloride 105 mmol/L (98-107); Estimated GFR 89.07 (mL/min/1.73m2); Glucose 123 mg/dL (74-106); Potassium 4.2 mmol/L (3.5-5.1); Sodium 137 mmol/L (136-145); Total Protein 6.5 g/dL (6.4-8.2)
--- NOTE | 2022-06-14 07:07 | W.PULMPROG ---
Assessment and Plan Assessment and plan (1) COPD exacerbation: Status: Acute (2) Pneumonia: Status: Acute (3) Acute and chronic respiratory failure with hypoxia: Status: Acute Assessment and plan: This is a 76 yo man with COPD and PVD, admitted to ICU for acute on chronic hypoxic respiratory failure due to a pneumonia. It sounds like he had outpatient failure of this pneumonia. His CXR is certainly abnormal, but on prior imaging, he has RLL abnormalities that may be persistent. His Zosyn can be changed to ceftriaxone. He does have some melena and so starting a PPI, particularly in the setting of a prednisone taper is reasonable. He continues to improve but is clinically still having a COPD exacerbation, which should improve with time. Acute on chronic hypoxic respiratory failure - supplementary O2 for sats 88-92% - VibraPEP - IS - out of bed to chair COPD exacerbation - recommend prednisone taper: 60mg for 4 days, 50mg for 4 days, 40mg for 4 days, 30mg for 4 days, 20mg for 4 days, 10mg for 4 days, 5mg for 4 days - recommend follow up with NM broach setter - Genia GUTIERREZ - continue Symbicort and Spiriva Pneumonia -sputum culture non revealing - urine antigens negative - can consider changing zosyn to ceftriaxone, continue azithromycin - Mucinex, tessalon industrial engineering and airway clearance General Date Of Service Date of service: 06/14/22 Time of Service: 07:07 Reason for Consult: Pneumonia COPD Exacerbation Subjective Note Note: Cayetano is feeling well today. His oxygen continues to fluctuate. He feels better but is still short of breath. Exam Narrative Exam Narrative: Gen: NAD, normal respiratory effort, well-nourished HENT: PERRL, nasal turbinates normal without erythema or inflammation, moist oral mucosa, Mallampati 2, No LAD or JVD Chest: No respiratory distress, normal appearance of chest, clear to auscultation bilaterally, diffuse, bilateral expiratory wheeze Heart: regular rate and rhythym, no murmurs, rubs or gallops Abdomen: Non-distended, soft, non tender Extremities: No clubbing, edema, cyanosis, rashes Neuro: AAOx3 , non focal Psych: cooperative, appropriate mental affect Objective Last Vital Signs Temp 37.1 C 06/14/22 03:20 Pulse 69 06/14/22 03:20 Resp 20 06/14/22 03:20 BP 115/64 06/14/22 03:20 Pulse Ox 87 L 06/14/22 03:20 Laboratory Results - last 24 hr 06/12/22 06/14/22 06/14/22 14:28 05:20 05:20 WBC 15.75 H RBC 3.65 L Hgb 11.0 L Hct 33.8 L MCV 93 MCH 30.1 MCHC 32.5 RDW 17.6 H Plt Count 356 MPV 9.6 Immature Gran % 2.5 Neutrophils % 83.5 Lymphocytes % 10.0 Monocytes % 3.7 Eosinophils % 0.0 Basophils % 0.3 Nucleated RBC % 0.1 Absolute Neutrophils 13.15 H Absolute Lymphocytes 1.58 Absolute Monocytes 0.58 Absolute Eosinophils 0.00 Absolute Basophils 0.05 Sodium 137 Potassium 4.2 Chloride 105 Carbon Dioxide 26.4 Anion Gap 5.6 BUN 31 H Creatinine 0.9 Est GFR (CKD-EPI 2020) 89.07 Glucose 123 H Calcium 8.2 L Total Bilirubin 0.4 AST 42 H ALT 31 Alkaline Phosphatase 79 Total Protein 6.5 Albumin 1.8 L Urine Legionella Ag Negative Ur Strep pneumoniae Ag Negative Results Medications Medications: Active Medications Generic Name Dose Route Start Last Admin Trade Name Freq PRN Reason Stop Dose Admin Acetaminophen 0 mg 06/12/22 15:18 Acetaminophen 325 Mg Tab PO Q4H PRN PRN Acidophilus/Pectin 1 cap 06/13/22 09:20 06/13/22 19:18 Lactobacillus Acidophilus Cap PO 1 cap BID ROSA Administration Al Hydrox/Mg Hydrox/Simethicone 30 ml 06/12/22 15:18 Mylanta Suspension 30 Ml Cup PO Q2H PRN PRN Albuterol Sulfate 2.5 mg 06/12/22 15:18 06/13/22 05:51 Albuterol 2.5 Mg/3 Ml Inh Soln Vial UPD 2.5 mg Q2H PRN PRN Administration Albuterol/Ipratropium 3 ml 06/12/22 16:00 06/13/22 19:13 Albuterol/Ipratropium 3 Ml Upd Vial UPD 3 ml QID ROSA Administration Aspirin 81 mg 06/13/22 08:30 06/13/22 08:37 Aspirin E.C. 81 Mg Tabec PO 81 mg DAILY ROSA Administration Benzonatate 200 mg 06/13/22 14:00 06/13/22 19:12 Benzonatate 200 Mg Cap PO 200 mg TID ROSA Administration Budesonide/Formoterol Fumarate 1 puff 06/13/22 08:30 06/13/22 20:09 Budesonide/Formoterol 160/4.5 6 Gm 60 Puff Inh IH 1 puffs BID ROSA Administration Clopidogrel Bisulfate 75 mg 06/13/22 08:30 06/13/22 08:37 Clopidogrel 75 Mg Tab PO 75 mg DAILY ROSA Administration Dimethicone/Zinc Oxide 0 gm 06/12/22 15:18 Chelsie Protect Cream 142 Gm Tube TP PRN PRN Docusate Sodium 100 mg 06/12/22 15:18 Docusate Sodium 100 Mg Cap PO TID PRN PRN Fluoxetine HCl 20 mg 06/13/22 08:30 06/13/22 08:37 Fluoxetine 20 Mg Cap PO 20 mg DAILY ROSA Administration Guaifenesin 600 mg 06/12/22 20:00 06/13/22 19:12 Guaifenesin 600 Mg Tabcr PO 600 mg BID ROSA Administration Piperacillin Sod/Tazobactam 50 mls @ 12.5 mls/hr 06/12/22 16:00 06/14/22 05:40 Sod 3.375 gm/ Sodium Chloride IVPB Infused Q8H ROSA Infusion Protocol Azithromycin 500 mg/ Sodium 250 mls @ 250 mls/hr 06/13/22 14:00 06/14/22 00:44 Chloride IVPB Infused Q24H ROSA Infusion IV Miscellaneous Supplies 1 each 06/12/22 10:30 06/12/22 11:11 Iv Access IV 1 each DIRECTED ROSA Administration Magnesium Hydroxide 30 ml 06/12/22 15:18 Milk Of Magnesia 30 Ml Cup PO DAILY PRN PRN Metoprolol Tartrate 12.5 mg 06/12/22 22:00 06/13/22 19:12 Metoprolol 12.5 Mg Tab PO 12.5 mg BID ROSA Administration Multi-Ingredient Supplement 1 ounce 06/13/22 14:00 06/13/22 19:12 Protein Nutritional Supplement 16 Gm 1 Ounce Packet PO 1 ounce TID ROSA Administration Multivitamins 1 tab 06/13/22 10:00 06/13/22 10:59 Multivitamin Tab PO 1 tab DAILY ROSA Administration Pantoprazole Sodium 40 mg 06/14/22 07:30 Pantoprazole 40 Mg Tabcr PO DAILY@0730 [facility] Polyethylene Glycol 17 gm 06/12/22 15:18 Polyethylene Glycol 3350 17 Gm Packet PO DAILY PRN PRN Constipation Prednisone 20 mg 06/16/22 08:30 Prednisone 20 Mg Tab PO 06/17/22 08:31 DAILY ROSA Prednisone 40 mg 06/14/22 08:30 Prednisone 20 Mg Tab PO 06/15/22 08:31 DAILY ROSA Rivaroxaban 20 mg 06/13/22 17:00 06/13/22 16:54 Rivaroxaban 10 Mg Tablet PO 20 mg DAILY@1700 ROSA Administration Simvastatin 10 mg 06/12/22 22:00 06/13/22 19:13 Simvastatin 20 Mg Tab PO 10 mg QPM ROSA Administration Sodium Chloride 0 ml 06/12/22 10:25 06/12/22 19:59 Normal Saline Flush 10 Ml Syr IVP 10 ml PRN PRN Administration Tiotropium [place] 2 puff 06/13/22 08:30 06/13/22 07:56 Tiotropium [place]-Respimat 10 Puff Inh IH 2 inh DAILY ROSA Administration Allergies No Known Allergies Allergy (Unverified 06/12/22 10:10) Labs Result Diagrams: 06/14/22 05:20 06/14/22 05:20 Labs: 06/13/22 09:00 Sputum - Expectorated Sputum Culture - Pending 06/13/22 09:00 Sputum - Expectorated Gram Stain - Final Laboratory Tests Range/Units 06/12/22 06/12/22 06/12/22 10:30 10:30 10:30 WBC (4.4-10.8) 10^3/uL 22.35 H RBC (4.36-5.78) 10^6/uL 4.04 L Hgb (13.5-17.5) g/dL 12.3 L Hct (40.0-50.0) % 37.2 L MCV (80-95) fL 92 MCH (27.0-33.0) pg 30.4 MCHC (32.0-36.0) % 33.1 RDW (11.8-14.1) % 17.3 H Plt Count (130-400) 10^3/uL 326 MPV (8.0-11.0) fL 9.5 Immature Gran % 2.5 Neutrophils % 84.7 Lymphocytes % 7.4 Monocytes % 4.8 Eosinophils % 0.1 Basophils % 0.5 Nucleated RBC % (0.0-0.3) % 0.0 Absolute Neutrophils (1.2-6.7) 10^3/uL 18.93 H Absolute Lymphocytes (1.2-3.4) 10^3/uL 1.65 Absolute Monocytes (0.1-0.8) 10^3/uL 1.07 H Absolute Eosinophils (0.0-0.7) 10^3/uL 0.02 Absolute Basophils (0.0-0.2) 10^3/uL 0.11 RBC Morphology Normal PT (9.3-11.0) sec 12.3 H INR (0.9-1.1) 1.2 H VBG pH (7.31-7.41) VBG pCO2 (41-51) mmHg VBG pO2 mmHg VBG HCO3 (23-28) mmol/L VBG Total CO2 (24-29) mmol/L VBG O2 Saturation % VBG Base Excess (-2-3) mmol/L Sodium (136-145) mmol/L 136 Potassium (3.5-5.1) mmol/L 4.0 Chloride (98-107) mmol/L 100 Carbon Dioxide (21.0-32.0) mmol/L 27.9 Anion Gap (3-11) mmol/L 8.1 BUN (7-18) mg/dL 18 Creatinine (0.70-1.30) mg/dL 1.0 Est GFR (CKD-EPI 2020) (mL/min/1.73m2) 78.49 Glucose (74-106) mg/dL 103 Calcium (8.5-10.1) mg/dL 8.4 L Magnesium (1.8-2.4) mg/dL 2.2 Total Bilirubin (0.2-1.0) mg/dL 0.6 AST (15-37) U/L 28 ALT (16-63) U/L 18 Alkaline Phosphatase (46-116) U/L 88 Troponin I (<or=60) ng/L < 50 Total Protein (6.4-8.2) g/dL 7.3 Albumin (3.4-5.0) g/dL 2.0 L Procalcitonin ng/mL COVID-19 Source SARS-CoV-2 (PCR) (Negative) Influenza Type A (PCR) (Negative) Influenza Type B (PCR) (Negative) Urine Legionella Ag (Negative) RSV (PCR) (Negative) Ur Strep pneumoniae Ag (Negative) Add-On Test Request Range/Units 06/12/22 06/12/22 06/12/22 10:32 14:28 16:17 WBC (4.4-10.8) 10^3/uL RBC (4.36-5.78) 10^6/uL Hgb (13.5-17.5) g/dL Hct (40.0-50.0) % MCV (80-95) fL MCH (27.0-33.0) pg MCHC (32.0-36.0) % RDW (11.8-14.1) % Plt Count (130-400) 10^3/uL MPV (8.0-11.0) fL Immature Gran % Neutrophils % Lymphocytes % Monocytes % Eosinophils % Basophils % Nucleated RBC % (0.0-0.3) % Absolute Neutrophils (1.2-6.7) 10^3/uL Absolute Lymphocytes (1.2-3.4) 10^3/uL Absolute Monocytes (0.1-0.8) 10^3/uL Absolute Eosinophils (0.0-0.7) 10^3/uL Absolute Basophils (0.0-0.2) 10^3/uL RBC Morphology PT (9.3-11.0) sec INR (0.9-1.1) VBG pH (7.31-7.41) VBG pCO2 (41-51) mmHg VBG pO2 mmHg VBG HCO3 (23-28) mmol/L VBG Total CO2 (24-29) mmol/L VBG O2 Saturation % VBG Base Excess (-2-3) mmol/L Sodium (136-145) mmol/L Potassium (3.5-5.1) mmol/L Chloride (98-107) mmol/L Carbon Dioxide (21.0-32.0) mmol/L Anion Gap (3-11) mmol/L BUN (7-18) mg/dL Creatinine (0.70-1.30) mg/dL Est GFR (CKD-EPI 2020) (mL/min/1.73m2) Glucose (74-106) mg/dL Calcium (8.5-10.1) mg/dL Magnesium (1.8-2.4) mg/dL Total Bilirubin (0.2-1.0) mg/dL AST (15-37) U/L ALT (16-63) U/L Alkaline Phosphatase (46-116) U/L Troponin I (<or=60) ng/L Total Protein (6.4-8.2) g/dL Albumin (3.4-5.0) g/dL Procalcitonin ng/mL COVID-19 Source Nasopharynx SARS-CoV-2 (PCR) (Negative) Negative Influenza Type A (PCR) (Negative) Negative Influenza Type B (PCR) (Negative) Negative Urine Legionella Ag (Negative) Negative RSV (PCR) (Negative) Negative Ur Strep pneumoniae Ag (Negative) Negative Add-On Test Request DONE Range/Units 06/12/22 06/13/22 06/13/22 16:17 05:21 05:21 WBC (4.4-10.8) 10^3/uL 16.61 H RBC (4.36-5.78) 10^6/uL 3.71 L Hgb (13.5-17.5) g/dL 11.4 L Hct (40.0-50.0) % 33.9 L MCV (80-95) fL 91 MCH (27.0-33.0) pg 30.7 MCHC (32.0-36.0) % 33.6 RDW (11.8-14.1) % 17.2 H Plt Count (130-400) 10^3/uL 316 MPV (8.0-11.0) fL 9.5 Immature Gran % 2.1 Neutrophils % 88.9 Lymphocytes % 6.3 Monocytes % 2.3 Eosinophils % 0.0 Basophils % 0.4 Nucleated RBC % (0.0-0.3) % 0.0 Absolute Neutrophils (1.2-6.7) 10^3/uL 14.77 H Absolute Lymphocytes (1.2-3.4) 10^3/uL 1.05 L Absolute Monocytes (0.1-0.8) 10^3/uL 0.38 Absolute Eosinophils (0.0-0.7) 10^3/uL 0.00 Absolute Basophils (0.0-0.2) 10^3/uL 0.07 RBC Morphology PT (9.3-11.0) sec INR (0.9-1.1) VBG pH (7.31-7.41) VBG pCO2 (41-51) mmHg VBG pO2 mmHg VBG HCO3 (23-28) mmol/L VBG Total CO2 (24-29) mmol/L VBG O2 Saturation % VBG Base Excess (-2-3) mmol/L Sodium (136-145) mmol/L 139 Potassium (3.5-5.1) mmol/L 4.2 Chloride (98-107) mmol/L 104 Carbon Dioxide (21.0-32.0) mmol/L 27.1 Anion Gap (3-11) mmol/L 7.9 BUN (7-18) mg/dL 22 H Creatinine (0.70-1.30) mg/dL 1.0 Est GFR (CKD-EPI 2020) (mL/min/1.73m2) 78.49 Glucose (74-106) mg/dL 183 H Calcium (8.5-10.1) mg/dL 8.3 L Magnesium (1.8-2.4) mg/dL Total Bilirubin (0.2-1.0) mg/dL 0.4 AST (15-37) U/L 36 ALT (16-63) U/L 23 Alkaline Phosphatase (46-116) U/L 78 Troponin I (<or=60) ng/L Total Protein (6.4-8.2) g/dL 6.9 Albumin (3.4-5.0) g/dL 1.8 L Procalcitonin ng/mL 2.9 COVID-19 Source SARS-CoV-2 (PCR) (Negative) Influenza Type A (PCR) (Negative) Influenza Type B (PCR) (Negative) Urine Legionella Ag (Negative) RSV (PCR) (Negative) Ur Strep pneumoniae Ag (Negative) Add-On Test Request Range/Units 06/13/22 06/14/22 06/14/22 05:21 05:20 05:20 WBC (4.4-10.8) 10^3/uL 15.75 H RBC (4.36-5.78) 10^6/uL 3.65 L Hgb (13.5-17.5) g/dL 11.0 L Hct (40.0-50.0) % 33.8 L MCV (80-95) fL 93 MCH (27.0-33.0) pg 30.1 MCHC (32.0-36.0) % 32.5 RDW (11.8-14.1) % 17.6 H Plt Count (130-400) 10^3/uL 356 MPV (8.0-11.0) fL 9.6 Immature Gran % 2.5 Neutrophils % 83.5 Lymphocytes % 10.0 Monocytes % 3.7 Eosinophils % 0.0 Basophils % 0.3 Nucleated RBC % (0.0-0.3) % 0.1 Absolute Neutrophils (1.2-6.7) 10^3/uL 13.15 H Absolute Lymphocytes (1.2-3.4) 10^3/uL 1.58 Absolute Monocytes (0.1-0.8) 10^3/uL 0.58 Absolute Eosinophils (0.0-0.7) 10^3/uL 0.00 Absolute Basophils (0.0-0.2) 10^3/uL 0.05 RBC Morphology PT (9.3-11.0) sec INR (0.9-1.1) VBG pH (7.31-7.41) 7.42 H VBG pCO2 (41-51) mmHg 42 VBG pO2 mmHg 61 VBG HCO3 (23-28) mmol/L 27 VBG Total CO2 (24-29) mmol/L 25 VBG O2 Saturation % 91 VBG Base Excess (-2-3) mmol/L 3 Sodium (136-145) mmol/L 137 Potassium (3.5-5.1) mmol/L 4.2 Chloride (98-107) mmol/L 105 Carbon Dioxide (21.0-32.0) mmol/L 26.4 Anion Gap (3-11) mmol/L 5.6 BUN (7-18) mg/dL 31 H Creatinine (0.70-1.30) mg/dL 0.9 Est GFR (CKD-EPI 2020) (mL/min/1.73m2) 89.07 Glucose (74-106) mg/dL 123 H Calcium (8.5-10.1) mg/dL 8.2 L Magnesium (1.8-2.4) mg/dL Total Bilirubin (0.2-1.0) mg/dL 0.4 AST (15-37) U/L 42 H ALT (16-63) U/L 31 Alkaline Phosphatase (46-116) U/L 79 Troponin I (<or=60) ng/L Total Protein (6.4-8.2) g/dL 6.5 Albumin (3.4-5.0) g/dL 1.8 L Procalcitonin ng/mL COVID-19 Source SARS-CoV-2 (PCR) (Negative) Influenza Type A (PCR) (Negative) Influenza Type B (PCR) (Negative) Urine Legionella Ag (Negative) RSV (PCR) (Negative) Ur Strep pneumoniae Ag (Negative) Add-On Test Request
[2022-06-14] MEDS: Tiotropium Bromide-Respimat 10 PUFF INH 2 PUFF IH (08:12)
[2022-06-14] MEDS: Budesonide/Formoterol 160/4.5 6 GM 60 PUFF INH IH ×2 (08:12→19:55)
[2022-06-14] MEDS: Pantoprazole 40 MG TABCR PO (08:20)
[2022-06-14] MEDS: Albuterol/Ipratropium 3 ML UPD VIAL UPD ×4 (08:41→20:05)
[2022-06-14] MEDS: cefTRIAXone 1 GM/50 ML BAG IV (09:00)
--- NOTE | 2022-06-14 09:18 | PGE_ITS ---
Date of Service Date of service: 06/14/22 Time of Service: 09:18 Assessment and Plan Assessment and plan (1) Acute and chronic respiratory failure with hypoxia: Status: Acute Assessment and plan: Secondary to underlying COPD with superimposed community-acquired pneumonia. Sputum gram stain shows normal niraj with rare epithelial cells and mixed gram- positive niraj. Sputum mycoplasma PCR is pending at this time. Fluid test was negative on admission for SARS-CoV-2 as well as influenza type a and B and RSV. Urine Legionella and urine strep antigen were negative. This point he can be downgraded on his antibiotics from Zosyn to Rocephin and I will switch his IV and azithromycin to oral. Continue supplemental oxygen with titration with a target SPO2 of 88 to 90%. En courage use of pulmonary toiletry including I-S and acapella. Per my discussion with RT and the patient and does not seem the chest percussion is really improving and immobilization sputum therefore we will discontinue chest percussion. Continue Mucinex and Tessalon Perles. Encourage him to get out of bed. Consulted physical therapy to work with him. He is now currently on medical/surgical floor status. Anticipate he will need hospitalization for parenteral antibiotics for couple more days and then transition over to oral antibiotics upon discharge. Continue prednisone at 40 mg daily. Patient was not steroid-dependent and should not need a prolonged taper. Continue his LABA/ICS (Advair Diskus) as well as his LAMA (Spiriva), continue scheduled aerosolized bronchodilators 4 times daily while awake and every 2 hours as needed Patient's case discussed with Dr. Didi Mcconnell. Professional time spent interviewing and examining patient, discussion of goals of care with hospital team (care management, nursing and consulting professionals) was 35 minutes. (2) Pneumonia: Status: Acute Assessment and plan: As above (3) COPD (chronic obstructive pulmonary disease): Status: Chronic Assessment and plan: as above (4) Atherosclerotic peripheral vascular disease: Status: Chronic Assessment and plan: Continue his Eliquis as and Plavix and aspirin patient was not on any GI protection and allegedly had black looking stools. We will monitor his stools f or occult blood and I put him on Protonix 40 mg daily. (5) Melena: Status: Suspected Assessment and plan: Patient reports he has had melanotic stools for couple weeks. The only time he seen overt blood in his occasionally when he wipes which sound suspicious for hemorrhoids. Nevertheless we will monitor his stool for occult blood monitor his H&H and if put him on a PPI for GI prophylaxis given his need for multiple anticoagulants and antiplatelets for his PAD. Patient is now on Protonix for GI protection and should remain on it as an outpatient. No reported melanotic stools overnight. H&H remained stable. (6) Generalized weakness: Status: Acute Assessment and plan: Secondary to exacerbation of his COPD and his pneumonia. We will request physical therapy consultation and have nursing get him up out of bed to get him more mobile. (7) DVT prophylaxis: Status: Acute Assessment and plan: Patient is chronically on rivaroxaban (8) Discharge planning issues: Status: Acute Assessment and plan: Patient intends to return home once he is medically stable. He may or may not need home health services upon discharge that will be determined by physical therapy prior to discharge. Patient is a DNR/DNI per his request. Family is bringing in his copy of his advance directives Subjective Subjective Patient reports: no new complaints and feels better Interval history since last seen: Cayetano feels less dyspnea, cough is nonproductive. His oxygen saturation fluctuates. His baseline oxygen saturation at home is only 85 to 86% on 2 lpm. Here is running 92% on 3 lpm but currently he is on 2 lpm and his SPO2 is 86 to 87%. Exam Narrative Exam Narrative: Cayetano looks more rested today does not appear to be dyspneic he is not using his accessory respiratory muscles at rest. He does have a plethoric appearance to his face which is chronic. Neck is supple no JVD Lungs with coarse expiratory wheezes but he seems to have improved airflow compared to yesterday with increased breath sounds throughout all lung lopez. Heart regular rate and rhythm no appreciable murmur rub Abdomen is obese soft nontender normal bowel sounds Extremities without peripheral cyanosis or edema. He has palpable pedal pulses. Objective Last Vital Signs Temp 37.1 C 06/14/22 03:20 Pulse 77 06/14/22 08:54 Resp 20 06/14/22 08:54 BP 115/64 06/14/22 03:20 Pulse Ox 92 06/14/22 09:08 Laboratory Results - last 24 hr 06/12/22 06/14/22 06/14/22 14:28 05:20 05:20 WBC 15.75 H RBC 3.65 L Hgb 11.0 L Hct 33.8 L MCV 93 MCH 30.1 MCHC 32.5 RDW 17.6 H Plt Count 356 MPV 9.6 Immature Gran % 2.5 Neutrophils % 83.5 Lymphocytes % 10.0 Monocytes % 3.7 Eosinophils % 0.0 Basophils % 0.3 Nucleated RBC % 0.1 Absolute Neutrophils 13.15 H Absolute Lymphocytes 1.58 Absolute Monocytes 0.58 Absolute Eosinophils 0.00 Absolute Basophils 0.05 Sodium 137 Potassium 4.2 Chloride 105 Carbon Dioxide 26.4 Anion Gap 5.6 BUN 31 H Creatinine 0.9 Est GFR (CKD-EPI 2020) 89.07 Glucose 123 H Calcium 8.2 L Total Bilirubin 0.4 AST 42 H ALT 31 Alkaline Phosphatase 79 Total Protein 6.5 Albumin 1.8 L Ur Strep pneumoniae Ag Negative Time Spent with Patient Time Spent with Patient: 35-49 minutes Time was spent: preparing to see the patient(eg.review tests), ordering medications,tests, procedures, referring, communicating with other health adult daycare coordinator, indepentently interpreting results, counseling the patient and care coordination
[2022-06-14] MEDS: Lactobacillus Acidophilus CAP 1 CAP PO ×2 (09:24→18:48)
[2022-06-14] MEDS: guaiFENesin 600 MG TABCR PO ×2 (09:24→18:48)
[2022-06-14] MEDS: Clopidogrel 75 MG TAB PO (09:24)
[2022-06-14] MEDS: Multivitamin TAB 1 TAB PO (09:24)
[2022-06-14] MEDS: Benzonatate 200 MG CAP PO ×3 (09:24→18:48)
[2022-06-14] MEDS: Aspirin E.C. 81 MG TABEC PO (09:24)
[2022-06-14] MEDS: Azithromycin 250 MG TAB PO (09:24)
[2022-06-14] MEDS: Metoprolol 12.5 MG TAB PO ×2 (09:24→18:47)
[2022-06-14] MEDS: FLUoxetine 20 MG CAP PO (09:25)
[2022-06-14] MEDS: Protein Nutritional Supplement 16 GM 1 OUNCE PACKET PO ×3 (09:25→18:47)
[2022-06-14] MEDS: Normal Saline Flush 10 ML SYR IVP (09:26)
[2022-06-14] MEDS: predniSONE 20 MG TAB 40 MG PO (09:31)
--- NOTE | 2022-06-14 10:02 | PDOC.CMPRO ---
- If Service Date Differs Date of service: 06/14/22 Time of Service: 10:02 Care Management Progress Note S/O:Cayetano was sitting up in bed when CM met with him. He indicated that he has not had a good day. He continues to cough frequently and his O2 saturation levels drop into the low 80s or high 70s. Cayetano did work with PT and was able to ambulate but the exercise induced a coughing fit with a drop in sats. He required a neb treatment after to recover. Cayetano was downgraded to Med-Surg today and moved out of the ICU. CM continues to follow. A: Cayetano is a 76 year old man admitted on 06/12/22 with pneumonia and respiratory failure P:Cayetano will likely discharge home with no new services. He will follow up with his community providers and plan of care and transport with family.CM will continue to offer support to Cayetano and assess for discharge planning needs.
--- NOTE | 2022-06-14 15:54 | PHACLINREV_ITS ---
Pharmacy Admission Review - Admission Clinical Review (Last Updated 06/12/22 @ 15:32 by Rian Dexter MD) Leukocytosis (Acute) COPD exacerbation (Acute) Discharge planning issues (Acute) DVT prophylaxis (Acute) Generalized weakness (Acute) Acute and chronic respiratory failure with hypoxia (Acute) Pneumonia (Acute) No Known Allergies Allergy (Unverified 06/12/22 10:10) Resuscitation Status DNR/DNI Height 5 ft 5 in Weight 79.3 kg - Comments Comments/Follow Ups: on prednisone taper. Reporting some melena, protonix 40 mg daily added. Oral vanco started today, cdif PCR pending - Renal Dosing Renal Dosing: BUN 31 mg/dL (7-18) H 06/14/22 05:20 Creatinine 0.9 mg/dL (0.70-1.30) 06/14/22 05:20 Medications needing adjustments: Reviewed (crcl = 61, no adjustments needed) - Anticoagulation Anticoagulation: Hgb 11.0 g/dL (13.5-17.5) L 06/14/22 05:20 Hct 33.8 % (40.0-50.0) L 06/14/22 05:20 Plt Count 356 10^3/uL (130-400) 06/14/22 05:20 INR 1.2 (0.9-1.1) H 06/12/22 10:30 Creatinine 0.9 mg/dL (0.70-1.30) 06/14/22 05:20 DVT Prophylaxis: Reviewed Medications: Rivaroxaban Therapeutic Anticoagulation: Reviewed Medications: Rivaroxaban (xarelto 20 mg daily) - Opiate Usage Evaluate Pain Scale/Pains Meds: N/A - Relevant Labs Sodium 137 mmol/L (136-145) 06/14/22 05:20 Potassium 4.2 mmol/L (3.5-5.1) 06/14/22 05:20 Chloride 105 mmol/L (98-107) 06/14/22 05:20 Magnesium 2.2 mg/dL (1.8-2.4) 06/12/22 10:30 Electrolytes, C-Reactive P, ESR: Reviewed - DM Control DM Control: Glucose 123 mg/dL (74-106) H 06/14/22 05:20 DM Control: N/A - Cardiac Review Cardiac Review: Troponin I < 50 ng/L (<or=60) 06/12/22 10:30 BP, HR, EF%: Reviewed - Qtc Review QTc: Reviewed (QTc = 491 on 06/12/22) - IV to PO Switch IV Medications: Reviewed (azithromycin switched to PO today) - Home Meds Home Med List reviewed: Reviewed (med rec done [place] [facility] [place] - Current meds Current Medication Order Review: Reviewed Antibiotic Review - Pharmacy Antibiotic Review Pharmacy Antibiotic Activity: 48 hour review, Antibiotic de-escalation (zosyn de-escelated to ceftriaxone), IV to PO (azithromycin switched to PO today. switch ceftriaxone to oral option upon discharge) - Antibiotic Information Antibiotic Review Info: sputum culture = normal niraj
[2022-06-14 16:44] LABS: C Diff PCR Positive (Negative)
--- NOTE | 2022-06-14 16:48 | PT.INTREAT ---
Date of service: 06/14/22 Time of Service: 16:48 PT Notes Visit Reasons: Pneumonia,Acute Hypoxic Respiratory Failure Physical Therapy Inpatient Treatment Note Date: 06/14/2022 Precautions: Fall. Enteric contact precautions for C. Difficle infection. Activity as tolerated. ? On chronic oxygen supplementation via NC. Subjective: Patient requested to have a bowel movement right before walking with PT. Reported soft stool to Nurse Fide who said that that was the second soft bowel movement patient has had this morning. Bothered by the coughing fit he had this morning after a short walk with PT. Objective: General Observation: Seated on bedside chair.?? Oxygen supplementation via NC. Mental Status: Alert and oriented as to person, place, time, and purpose. Able to pay attention, focus, and respond appropriately. Pain: Denies Vital Signs: Oxygen saturation low of 75% on 4 L during the first 60 feet of ambulation using walker Bed Mobility/Transfers: Rolling supervision Supine to sit supervision Sit to supine standby assist Sit to stand standby assist Stand to sit standby assist Bed to reclining standby assist Reclining chair to bed standby assist Gait: 75 feet requiring stand by assist with wheelchair follow by PT. Moderate shortness of breath with oxygen saturation at 75% on 4 L with digital cyanosis observed. patient went into coughing fit and was wheeled back inside room to have nebulization with RT Melisa. Later in the afternoon, RT Melisa stated that patient had the coughing fit for about 20 minutes earlier in the morning. THERA EX: Standing bilateral heel raises x 4 with desaturation to 81% on 4 L/min. Deferred further activity. Assisted patient back to bed to rest. Balance: Static Sitting: Normal Dynamic Sitting: Normal Static Standing: Fair Dynamic Standing: Fair Assessment: Desaturation rate seems to be quicker today with the smallest of activity even at 4L/minute of O2 supp. Positive for C. Diff infection per most recent lab. DISCHARGE RECOMMENDATIONS: [] ? Home with no services [] [] ? Home with services[] [] ? Home with outpatient PT [] [] ? SNF for continued rehabilitation [] [] ? Automobile Mechanic Assistant Care [] [] ? SNF versus LTC based on ability to participate and progress [] [X] HH PT vs SNF based on symptom trajectory/progress toward goals TREATMENT CODE/TIME: Session 1-- 23709 x 20 minutes beginning at 11:19 AM. Session 2--[id number] x 19 minutes beginning at 16:48 PM.
[2022-06-14] MEDS: Rivaroxaban 10 MG TABLET 20 MG PO (17:02)
[2022-06-14] MEDS: Simvastatin 20 MG TAB 10 MG PO (18:48)
[2022-06-15] VITALS (10 sets, daily range): BP systolic 124–133; BP diastolic 64–74; PULSE 62–81; RESP 2–28; TEMP 35.8–37; O2SAT 89–97
[2022-06-15] MEDS: Normal Saline Flush 10 ML SYR IVP ×2 (00:31→19:28)
[2022-06-15] MEDS: Budesonide/Formoterol 160/4.5 6 GM 60 PUFF INH IH ×2 (07:38→19:28)
[2022-06-15] MEDS: Tiotropium Bromide-Respimat 10 PUFF INH 2 PUFF IH (07:38)
[2022-06-15] MEDS: Albuterol/Ipratropium 3 ML UPD VIAL UPD ×3 (07:41→19:27)
--- NOTE | 2022-06-15 08:24 | CMPROGNOTE_ITS ---
- If Service Date Differs Date of service: 06/15/22 Time of Service: 08:25 Care Management Progress Note S/O:Cayetano was sitting up in bed when CM met with him. He continues to have periods where his oxygen sats drop and he becomes short of breath, generally with activity. He did state that his coughing has decreased since yesterday and he feels better. Cayetano talked a lot today about his home life and the fact that his 4 years ago. They had been for almost [address] ill misses her every day. He admitted that he does not have much interest in house cleaning and that his daughter has higher standards than he does. He shared that he does keep busy. He does his own shopping and cooking and heats his home with wood. He proudly shared that until February of 2022 he had not used any oil in over 2 years. Cayetano does not feel he will need any services when discharged and was clear that he would not accept home health services, even if recommended. A: Cayetano is a 76 year old man admitted on 06/12/22 with pneumonia and respiratory failure P:Cayetano will likely discharge home with no new services. He will follow up with his community providers and plan of care and transport with family.CM will continue to offer support to Cayetano and assess for discharge planning needs.
[2022-06-15] MEDS: Psyllium PKT 1 EACH PO ×2 (08:28→19:23)
[2022-06-15] MEDS: Benzonatate 200 MG CAP PO ×3 (08:28→19:25)
[2022-06-15] MEDS: Metoprolol 12.5 MG TAB PO ×2 (08:28→19:26)
[2022-06-15] MEDS: cefTRIAXone 1 GM/50 ML BAG IV (08:28)
[2022-06-15] MEDS: Multivitamin TAB 1 TAB PO (08:29)
[2022-06-15] MEDS: Pantoprazole 40 MG TABCR PO (08:29)
[2022-06-15] MEDS: FLUoxetine 20 MG CAP PO (08:29)
[2022-06-15] MEDS: Azithromycin 250 MG TAB PO (08:29)
[2022-06-15] MEDS: guaiFENesin 600 MG TABCR PO ×2 (08:29→19:25)
[2022-06-15] MEDS: predniSONE 20 MG TAB 40 MG PO (08:29)
[2022-06-15] MEDS: Aspirin E.C. 81 MG TABEC PO (08:29)
[2022-06-15] MEDS: Protein Nutritional Supplement 16 GM 1 OUNCE PACKET PO ×3 (08:30→19:23)
[2022-06-15] MEDS: Clopidogrel 75 MG TAB PO (08:30)
[2022-06-15] MEDS: Lactobacillus Acidophilus CAP 1 CAP PO ×2 (08:30→19:27)
--- NOTE | 2022-06-15 14:30 | PT.INTREAT ---
Date of service: 06/15/22 Time of Service: 14:30 PT Notes Visit Reasons: Pneumonia,Acute Hypoxic Respiratory Failure Physical Therapy Inpatient Treatment Note Date: 06/15/2022 Precautions: Fall.?Enteric contact precautions for C. Difficle infection. Activity as tolerated. ? On chronic oxygen supplementation via NC. Subjective: Anxious about getting into coughing fit again with walking but is happy that he only did a short coughing episode that lasted less than a minute. States that he feels that his coughing is much looser today. Did not get too out of breath with walking. Objective: General Observation: Seated on bedside chair.?? Oxygen supplementation via NC. Mental Status: Alert and oriented as to person, place, time, and purpose. Able to pay attention, focus, and respond appropriately. Pain: Denies Vital Signs: Oxygen saturation low of 86% on 4 L with quick recovery up to 89% in about one minute with eseated rest Bed Mobility/Transfers: Sit to stand standby assist Stand to sit standby assist Bed to reclining standby assist Reclining chair to bed standby assist Gait: 50 feet + 50 feet requiring stand by assist with wheelchair follow by PT.? Minimal shortness of breath with oxygen saturation at 86% on 4 L with less digital cyanosis observed.? Short coughing episode that lasted less than a minute. THERA EX: LAQ x 10 Chest expansion exercises with DBE x 5 Seated marches x 10 Chest expansion exercises with DBE x 5 AKTC x 10 while reclined on chair x 10 Ankle circles x 10 Trunk lateral rotation to L and R x 5 each Balance: Static Sitting: Normal Dynamic Sitting: Normal Static Standing: Fair Dynamic Standing: Fair Assessment: Performed with much ease and lesser shortness of breath during ambulation and exercises. Oxygen saturation low of 86% with walking and 88% with exercises but with easier recovery today compared to yesterday. DISCHARGE RECOMMENDATIONS: [] ? Home with no services [] [] ? Home with services[] [] ? Home with outpatient PT [] [] ? SNF for continued rehabilitation [] [] ? Shipping Track Supervisor Care [] [] ? SNF versus LTC based on ability to participate and progress [] [X]? HH PT vs SNF based on symptom trajectory/progress toward goals TREATMENT CODE/TIME: Session 1-- 07487 x 28 minutes beginning at 10:28 AM. Session 2--[id number] x 17 minutes beginning at 14:30 PM.
[2022-06-15] MEDS: Rivaroxaban 10 MG TABLET 20 MG PO (16:06)
--- NOTE | 2022-06-15 17:02 | PGE_ITS ---
Date of Service Date of service: 06/15/22 Time of Service: 17:24 Assessment and Plan Assessment and plan (1) Acute and chronic respiratory failure with hypoxia: Status: Acute Assessment and plan: Secondary to underlying COPD with superimposed community-acquired pneumonia. Sputum culture grew normal oral niraj. Sputum mycoplasma PCR is pending at this time. Fluid test was negative on admission for SARS-CoV-2 as well as influenza type a and B and RSV. Urine Legionella and urine strep antigen were negative. Continue Rocephin 1 g IV daily and azithromycin to 50 mg p.o. Continue supplemental oxygen with titration with a target SPO2 of 88 to 90%. Encourage use of pulmonary toiletry including I-S and acapella. Continue Mucinex and Tessalon Perles. Encourage him to get out of bed. Consulted physical therapy to work with him. He is now currently on medical/surgical floor status. Anticipate he will need hospitalization for parenteral antibiotics for couple more days and then transition over to oral antibiotics upon discharge. Continue prednisone at 40 mg daily. Patient was not steroid- dependent and should not need a prolonged taper. Continue his LABA/ICS (Advair Diskus) as well as his LAMA (Spiriva), continue scheduled aerosolized bronchodilators 4 times daily while awake and every 2 hours as needed Professional time spent interviewing and examining patient, discussion of goals of care with hospital team (care management, nursing and consulting professionals) was 15 minutes. (2) Pneumonia: Status: Acute Assessment and plan: As above (3) COPD (chronic obstructive pulmonary disease): Status: Chronic Assessment and plan: as above (4) C. difficile colitis: Status: Acute Assessment and plan: Stool positive for C. difficile PCR. Patient currently on vancomycin along with probiotics and Metamucil to try to thicken up his stools. (5) Atherosclerotic peripheral vascular disease: Status: Chronic Assessment and plan: Continue his Eliquis as and Plavix and aspirin patient was not on any GI protection and allegedly had black looking stools. We will monitor his stools for occult blood and I put him on Protonix 40 mg daily. (6) Melena: Status: Suspected Assessment and plan: Patient reports he has had melanotic stools for couple weeks. The only time he seen overt blood in his occasionally when he wipes which sound suspicious for hemorrhoids. Nevertheless we will monitor his stool for occult blood monitor his H&H and if put him on a PPI for GI prophylaxis given his need for multiple anticoagulants and antiplatelets for his PAD. Patient is now on Protonix for GI protection and should remain on it as an outpatient. No reported melanotic stools overnight. H&H remained stable. Stool occult blood was negative and H&H is been stable. (7) Generalized weakness: Status: Acute Assessment and plan: Secondary to exacerbation of his COPD and his pneumonia. We will request physi vashti therapy consultation and have nursing get him up out of bed to get him more mobile. (8) DVT prophylaxis: Status: Acute Assessment and plan: Patient is chronically on rivaroxaban (9) Discharge planning issues: Status: Acute Assessment and plan: Patient intends to return home once he is medically stable. He may or may not need home health services upon discharge that will be determined by physical therapy prior to discharge. Patient is a DNR/DNI per his request. Family is bringing in his copy of his advance directives Subjective Subjective Interval history since last seen: Cayetano is feeling better today he is less dyspneic. Cough has become a little more productive he is having less paroxysms of coughing. Bowels are still on the loose side he had 3 loose bowel movements today. He is currently on vancomycin for C. difficile colitis. He remains on Rocephin and azithromycin for his pneumonia. He is on 3 L/min per nasal cannula which is about his baseline oxygen requirement. Appetite is good he is eating well. Exam Narrative Exam Narrative: Plethoric facial appearance, alert and oriented person place time circumstance. He is able to talk in complete paragraphs he was on the phone talking with family member when I walked in the room. Lungs with scattered expiratory wheezes and rhonchi no rales Heart is distant heart tones but sounds to be regular, radial pulses regular Abdomen is obese soft nontender normal bowel sounds no guarding Extremities without peripheral cyanosis or edema Objective Last Vital Signs Temp 36.3 C L 06/15/22 14:59 Pulse 77 06/15/22 14:59 Resp 22 06/15/22 14:59 BP 125/69 06/15/22 14:59 Pulse Ox 90 L 06/15/22 14:59 Reviewed Pertinent PMH: Yes Time Spent with Patient Time Spent with Patient: <25 minutes Time was spent: preparing to see the patient(eg.review tests), ordering medications,tests, procedures, indepentently interpreting results, counseling the patient and care coordination
[2022-06-15] MEDS: Simvastatin 20 MG TAB 10 MG PO (19:26)
[2022-06-16] VITALS (9 sets, daily range): BP systolic 114–134; BP diastolic 68–80; PULSE 61–78; RESP 4–20; TEMP 36.1–36.3; O2SAT 92–94
[2022-06-16 07:31] LABS: Abs Immature Grans 0.27 10^3/uL (0.0-0.06); Absolute Basophil Count 0.02 10^3/uL (0.0-0.2); Absolute Eosinophil Count 0.21 10^3/uL (0.0-0.7); Absolute Lymphocyte Count 3.22 10^3/uL (1.2-3.4); Absolute Monocyte Count 0.52 10^3/uL (0.1-0.8); Absolute Neutrophil Count 7.17 10^3/uL (1.2-6.7); Basophils % 0.2; Eosinophils % 1.8; HCT 40.9 % (40.0-50.0); Immature Grans % 2.4; Lymphocytes % 28.2; MCHC 31.8 % (32.0-36.0); MCV 95 fL (80-95); MPV 9.3 fL (8.0-11.0); Monocytes % 4.6; Neutrophils % 62.8; Platelet Count 464 10^3/uL (130-400); RBC 4.33 10^6/uL (4.36-5.78); RDW 17.6 % (11.8-14.1); RDW-SD 60.8 fL; WBC 11.41 10^3/uL (4.4-10.8)
[2022-06-16] MEDS: cefTRIAXone 1 GM/50 ML BAG IV (07:47)
[2022-06-16] MEDS: Psyllium PKT 1 EACH PO ×2 (07:47→20:40)
[2022-06-16] MEDS: Normal Saline Flush 10 ML SYR IVP (07:48)
[2022-06-16] MEDS: Protein Nutritional Supplement 16 GM 1 OUNCE PACKET PO ×3 (07:48→20:39)
[2022-06-16] MEDS: predniSONE 20 MG TAB 40 MG PO (07:49)
[2022-06-16] MEDS: Benzonatate 200 MG CAP PO ×3 (07:49→20:42)
[2022-06-16] MEDS: Azithromycin 250 MG TAB PO (07:49)
[2022-06-16] MEDS: Aspirin E.C. 81 MG TABEC PO (07:49)
[2022-06-16] MEDS: FLUoxetine 20 MG CAP PO (07:49)
[2022-06-16] MEDS: Multivitamin TAB 1 TAB PO (07:50)
[2022-06-16] MEDS: Metoprolol 12.5 MG TAB PO ×2 (07:50→20:42)
[2022-06-16] MEDS: Clopidogrel 75 MG TAB PO (07:50)
[2022-06-16] MEDS: Pantoprazole 40 MG TABCR PO (07:50)
[2022-06-16] MEDS: Lactobacillus Acidophilus CAP 1 CAP PO ×2 (07:50→20:42)
[2022-06-16] MEDS: guaiFENesin 600 MG TABCR PO ×2 (07:50→20:41)
[2022-06-16] MEDS: Albuterol/Ipratropium 3 ML UPD VIAL UPD ×4 (07:59→20:41)
[2022-06-16] MEDS: Budesonide/Formoterol 160/4.5 6 GM 60 PUFF INH IH ×2 (07:59→20:41)
[2022-06-16] MEDS: Tiotropium Bromide-Respimat 10 PUFF INH 2 PUFF IH (07:59)
[2022-06-16 08:06] LABS: ALT 58 U/L (16-63); AST 39 U/L (15-37); Albumin 2.3 g/dL (3.4-5.0); Alkaline Phosphatase 70 U/L (46-116); Anion Gap 3.8 mmol/L (3-11); BUN 26 mg/dL (7-18); Bilirubin, Total 0.3 mg/dL (0.2-1.0); C-Reactive Protein 5.31 mg/dL (0.0-0.3); CO2 31.2 mmol/L (21.0-32.0); CREATININE 0.9 mg/dL (0.70-1.30); Calcium 8.8 mg/dL (8.5-10.1); Chloride 106 mmol/L (98-107); Estimated GFR 89.07 (mL/min/1.73m2); Glucose 86 mg/dL (74-106); Potassium 4.8 mmol/L (3.5-5.1); Sodium 141 mmol/L (136-145); Total Protein 7.1 g/dL (6.4-8.2)
[2022-06-16 08:16] LABS: Procalcitonin 0.3 ng/mL
--- NOTE | 2022-06-16 08:53 | CMPROGNOTE_ITS ---
- If Service Date Differs Date of service: 06/16/22 Time of Service: 08:53 Care Management Progress Note S/O:Cayetano was sitting up in bed when CM met with him. He engaged easily with CM and shared that he is feeling a little bit better each day. He ambulated with PT this morning and the plan is to take another walk this afternoon. Cayetano talked a bit about his son who is a workforce staffing advisor and supplies him with wood. 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 Cayetano also talked about his routines at home and reiterated that he prefers to be alone and does not have people into his home often. Cayetano stated that he is looking forward to going home but understands that he may not be quite ready. CM discussed the risk of readmission if discharge occurs prematurely and Cayetano admitted that he just relapsed from having been sick a month ago. A: Cayetano is a 76 year old man admitted on 06/12/22 with pneumonia and respiratory failure P:Cayetano will likely discharge home with no new services. He will follow up with his community providers and plan of care and transport with family.CM will continue to offer support to Cayetano and assess for discharge planning needs.
--- NOTE | 2022-06-16 15:04 | PT.INTREAT ---
Date of service: 06/16/22 Time of Service: 11:38 PT Notes Visit Reasons: Pneumonia,Acute Hypoxic Respiratory Failure Inpatient Physical Therapy Treatment Note [facility] Date: 06/16/2022 PRECAUTIONS: Activity as tolerated SUBJECTIVE: Cayetano is pleasant and agreeable to participating in PT. He reports that he is feeling better today, and that he has been getting up and transferring within his room without assist. OBJECTIVE: PAIN: No c/o pain BED MOBILITY/TRANSFERS Sit-stand: I Stand-sit: I GAIT Assistive Device: FWW Weight bearing: Full Assist: SBA Distance: 40' x2 in a.m.; 100' in p.m. Deviation: Standing rest x1 in a.m., minimal-moderate SOB VITALS: 86-90% on 4L O2 via NC with gait training THEREX: Patient was instructed in LE strengthening program, completed in a seated position, to include: ankle pumps, LAQ, hip flexion and hip abduction. ASSESSMENT: Patient tolerated session well, although with minimal complaint of SOB with gait training. He was able to tolerate a progression in gait distance with FWW support and SBA. PLAN: Add stair training, and continue with gait and transfer training as well as LE strengthening. TREATMENT CODE/TIME: Session 1: 15 minutes; 77197 (11:38) Session 2: 25 minutes; [id number], 03968 (14:25)
[2022-06-16] MEDS: Rivaroxaban 10 MG TABLET 20 MG PO (16:02)
--- NOTE | 2022-06-16 17:02 | W.PM.PROGNOT ---
Date of Service Date of service: 06/16/22 Time of Service: 17:02 Assessment and Plan Assessment and plan (1) Acute and chronic respiratory failure with hypoxia: Status: Acute Assessment and plan: Secondary to underlying COPD with superimposed community-acquired pneumonia. Sputum culture grew normal oral niraj. Sputum mycoplasma PCR is pending at this time. Fluid test was negative on admission for SARS-CoV-2 as well as influenza type a and B and RSV. Urine Legionella and urine strep antigen were negative. Continue Rocephin 1 g IV daily and azithromycin to 50 mg p.o. Continue respiratory support with scheduled bronchodilators including DuoNeb treatments. Continue his maintenance COPD medicines including his LABA/ICS (Symbicort in place of his Advair) and his LAMA (Spiriva) continue ceftriaxone and azithromycin. Noted he has been treated with Zosyn and azithromycin from 06/12/2022 through 06/14/2022 has been on ceftriaxone and azithromycin since then. We will continue parenteral antibiotics through discharge for 7 days total. We will recheck his chest x-ray prior to discharge. Professional time spent interviewing and examining patient, discussion of goals of care with hospital team (care management, nursing and consulting professionals) was 20 minutes. (2) Pneumonia: Status: Acute Assessment and plan: As above (3) COPD (chronic obstructive pulmonary disease): Status: Chronic Assessment and plan: as above (4) C. difficile colitis: Status: Acute Assessment and plan: Stool positive for C. difficile PCR. Patient currently on vancomycin along with probiotics and Metamucil to try to thicken up his stools. I discontinued his Protonix in favor of Pepcid. He should remain on some acid suppressant however given the fact that he is on multiple antiplatelet and blood thinner agents for his PAD. I think once he can get his stools down to a couple of soft bowel movements a day he could probably return home. He does live at home therefore if he is having multiple stools with incontinence he will probably fail at home. (5) Atherosclerotic peripheral vascular disease: Status: Chronic Assessment and plan: Continue his Eliquis as and Plavix and aspirin patient was not on any GI protection and allegedly had black looking stools. We will monitor his stools for occult blood and I put him on Protonix 40 mg daily. (6) Melena: Status: Suspected Assessment and plan: Patient reports he has had melanotic stools for couple weeks. The only time he seen overt blood in his occasionally when he wipes which sound suspicious for hemorrhoids. Nevertheless we will monitor his stool for occult blood monitor his H&H and if put him on a PPI for GI prophylaxis given his need for multiple anticoagulants and antiplatelets for his PAD. Patient is now on Pepcid for GI protection and should remain on it as an outpatient. No reported melanotic stools overnight. H&H remained stable. Stool occult blood was negative and H&H is been stable. (7) Generalized weakness: Status: Acute Assessment and plan: Secondary to exacerbation of his COPD and his pneumonia. We will request physical therapy consultation and have nursing get him up out of bed to get him more mobile. (8) DVT prophylaxis: Status: Acute Assessment and plan: Patient is chronically on rivaroxaban (9) Discharge planning issues: Status: Acute Assessment and plan: Patient intends to return home once he is medically stable. He may or may not need home health services upon discharge that will be determined by physical therapy prior to discharge. Patient is a DNR/DNI per his request. Family is bringing in his copy of his advance directives Subjective Subjective Interval history since last seen: Overall Mr. Salinas is feeling better. He is afebrile cough has become a little more productive. As far as his stools they are starting to firm up a little bit he has had 3 bowel movements today. Appetite is good. He walked for physical therapy doing a loop around the nursing unit and states that he did not have to stop. I told him that if he continues to improve this way he probably be home in the next 1 to 2 days hopefully tomorrow. He seems to be at his baseline in terms of his oxygen needs he is on 3 L/min per nasal cannula. His oxygen saturation is 93 to 94% Urine Legionella antigen and strep antigen are negative. His fluid was negative upon admission. His mycoplasma PCR is still pending at this time although the lab did assure me yesterday that it was collected. His inflammatory markers are decreasing his hemoglobin is stable at 13 g while his white cell count is down to 11,400. CRP is elevated at 5.3 procalcitonin level has come down to 0.3 from a high of 2.9.. Exam Narrative Exam Narrative: Elderly, male sitting up in his bed eating his dinner. He is alert and oriented person place time circumstance he is wearing his oxygen he is not dyspneic denies any pain. Chest is barrel chested lungs with some scattered end expiratory wheezes and some scattered rhonchi no rales Heart is regular to slightly tachycardic Abdomen is obese soft nontender no guarding or rebound tenderness normal bowel sounds Extremities without peripheral cyanosis or edema he has well-healed scars from previous peripheral vascular disease. Objective Last Vital Signs Temp 36.1 C L 06/16/22 15:37 Pulse 78 06/16/22 15:37 Resp 19 06/16/22 15:37 BP 114/75 06/16/22 15:37 Pulse Ox 94 06/16/22 15:54 Laboratory Results - last 24 hr 06/16/22 06/16/22 06/16/22 06:45 06:45 06:45 WBC 11.41 H RBC 4.33 L Hgb 13.0 L D Hct 40.9 MCV 95 MCH 30.0 MCHC 31.8 L RDW 17.6 H Plt Count 464 H MPV 9.3 Immature Gran % 2.4 Neutrophils % 62.8 Lymphocytes % 28.2 Monocytes % 4.6 Eosinophils % 1.8 Basophils % 0.2 Nucleated RBC % 0.0 Absolute Neutrophils 7.17 H Absolute Lymphocytes 3.22 Absolute Monocytes 0.52 Absolute Eosinophils 0.21 Absolute Basophils 0.02 Sodium 141 Potassium 4.8 Chloride 106 Carbon Dioxide 31.2 Anion Gap 3.8 BUN 26 H Creatinine 0.9 Est GFR (CKD-EPI 2020) 89.07 Glucose 86 Calcium 8.8 Total Bilirubin 0.3 AST 39 H ALT 58 Alkaline Phosphatase 70 C-Reactive Protein 5.31 H Total Protein 7.1 Albumin 2.3 L Procalcitonin 0.3 Time Spent with Patient Time Spent with Patient: <25 minutes Time was spent: preparing to see the patient(eg.review tests), ordering medications,tests, procedures, indepentently interpreting results, counseling the patient and care coordination
[2022-06-16] MEDS: Simvastatin 20 MG TAB 10 MG PO (20:41)
[2022-06-17 00:05] LABS: Mycoplasma Pneumoniae PCR Negative; Specimen source Sputum
[2022-06-17 00:07] VITALS: BP 130/75; PULSE 72; RESP 20; TEMP 36.8; O2SAT 92
[2022-06-17 03:22] VITALS: BP 110/62; PULSE 58; RESP 18; TEMP 36.2; O2SAT 94
--- NOTE | 2022-06-17 07:00 | DI.RAD_ITS ---
Exam(s) XR CHEST 2V PA LATERAL EXAM: XR CHEST 2V PA LATERAL CLINICAL HISTORY: pneumonia follow up. TECHNIQUE: 2D digital imaging was performed. COMPARISON: CR XR CHEST 2V PA LATERAL from 04/05/2018 CR XR PORTABLE CHEST AP from 06/12/2022 FINDINGS: 2 views: Heart size is normal. The mediastinum is not widened. There has been significant improvement in the left lower lobe infiltrate and in the infiltrate in the lower right lung field. Upper right lung field infiltrate has also mildly improved. No new areas o f infiltrate. No pleural effusions. No pneumothorax. Large bulla in the lower half the right lung field is again noted. No evidence of pulmonary edema IMPRESSION: Some bilateral prove mint as described above. DATA REPOSITORY: RADIATION DOSE DELIVERED:
[2022-06-17 07:16] VITALS: BP 145/82; PULSE 63; RESP 20; TEMP 35.8; O2SAT 92
[2022-06-17 07:50] VITALS: RESP 8; O2SAT 86
[2022-06-17] MEDS: Tiotropium Bromide-Respimat 10 PUFF INH 2 PUFF IH (07:50)
[2022-06-17] MEDS: Albuterol/Ipratropium 3 ML UPD VIAL UPD ×2 (07:50→11:33)
[2022-06-17] MEDS: Budesonide/Formoterol 160/4.5 6 GM 60 PUFF INH IH (07:50)
--- NOTE | 2022-06-17 08:06 | DI.VRAD_ITS ---
PROCEDURE INFORMATION: Exam: XR Chest Exam date and time: 06/17/2022 7:29 AM Age: 76 years old Clinical indication: Pain; On breathing TECHNIQUE: Imaging protocol: Radiologic exam of the chest. Views: 2 views. COMPARISON: CR XR PORTABLE CHEST AP 06/12/2022 11:04 AM FINDINGS: Lungs: Large bulla in the right mid lung and right base. Persistent opacities in the right upper lobe and left base may represent pneumonia. . Pleural spaces: Unremarkable. No pleural effusion. No pneumothorax. Heart/Mediastinum: Stable cardiac silhouette Bones/joints: Unremarkable. IMPRESSION: Large bulla in the right mid lung and right base. Persistent opacities in the right upper lobe and left base may represent pneumonia. . Dictated and Authenticated by: Naman Burgess MD. Ordering:[facility] Isacc Modi MD
[2022-06-17] MEDS: Normal Saline 500 ML 100 ML IV (09:26)
[2022-06-17] MEDS: Protein Nutritional Supplement 16 GM 1 OUNCE PACKET PO (09:27)
[2022-06-17] MEDS: Psyllium PKT 1 EACH PO (09:27)
[2022-06-17] MEDS: cefTRIAXone 1 GM/50 ML BAG IV (09:27)
[2022-06-17] MEDS: Normal Saline Flush 10 ML SYR IVP (09:27)
[2022-06-17] MEDS: guaiFENesin 600 MG TABCR PO (09:28)
[2022-06-17] MEDS: Aspirin E.C. 81 MG TABEC PO (09:28)
[2022-06-17] MEDS: Metoprolol 12.5 MG TAB PO (09:28)
[2022-06-17] MEDS: FLUoxetine 20 MG CAP PO (09:28)
[2022-06-17] MEDS: Multivitamin TAB 1 TAB PO (09:28)
[2022-06-17] MEDS: Lactobacillus Acidophilus CAP 1 CAP PO (09:28)
[2022-06-17] MEDS: predniSONE 20 MG TAB 40 MG PO (09:28)
[2022-06-17] MEDS: Azithromycin 250 MG TAB PO (09:28)
[2022-06-17] MEDS: Clopidogrel 75 MG TAB PO (09:28)
[2022-06-17] MEDS: Benzonatate 200 MG CAP PO (09:28)
[2022-06-17] MEDS: Famotidine 20 MG TAB PO (09:28)
--- NOTE | 2022-06-17 09:30 | DSE_ITS ---
Date of service: 06/17/22 Time of Service: 09:30 DS: Diagnosis Discharge Diagnosis (1) Acute and chronic respiratory failure with hypoxia: Status: Acute (2) Pneumonia: Status: Acute (3) COPD (chronic obstructive pulmonary disease): Status: Chronic (4) C. difficile colitis: Status: Acute (5) Atherosclerotic peripheral vascular disease: Status: Chronic (6) Melena: Status: Suspected (7) Generalized weakness: Status: Acute (8) DVT prophylaxis: Status: Acute (9) Discharge planning issues: Status: Acute Discharge Plan Disposition Patient Disposition: Home Condition: Improving Discharge Details Reason For Visit: Pneumonia,Acute Hypoxic Respiratory Failure Admit Date/Time: 06/12/22 12:14 Admit Provider: Rian Dexter Attending Provider: Rian Dexter Primary Care Provider: Unknown,Unknown Home Meds and New Rx's Prescriptions: New azithromycin 250 mg Tablet 250 mg PO DAILY Qty: 2 0RF vancomycin 250 mg Capsule 250 mg PO QID Qty: 18 0RF guaifenesin [Mucus Relief ER] 600 mg Tablet Extended Release 12hr 600 mg PO BID Qty: 0 0RF cefpodoxime 200 mg tablet 200 mg PO BID Qty: 8 0RF Rx Instructions: must administer with a meal/food First dose the evening of 06/17/22 Continued fluoxetine 20 MG capsule 20 mg PO DAILY metoprolol tartrate 25 MG tablet 12.5 mg PO BID simvastatin 10 MG tablet 10 mg PO DAILY clopidogrel [Plavix] 75 MG tablet 75 mg PO DAILY aspirin 81 mg Tablet,Delayed Release (Dr/Ec) 81 mg PO DAILY fluticasone propion-salmeterol [Advair Diskus] 250-50 mcg/dose Blister With Device 1 inh INHALATION BID acetaminophen 500 mg Tablet 1,000 mg PO Q6H PRN PRN albuterol sulfate [Ventolin HFA] 90 mcg/actuation Hfa Aerosol Inhaler 2 puff INHALATION QID PRN rivaroxaban 20 mg Tablet 20 mg PO DAILY Rx Instructions: must administer with evening meal Spiriva Respimat 2.5 mcg/actuation Mist 2 puff INHALATION DAILY sildenafil 100 mg Tablet 100 mg PO DAILY PRN Rx Instructions: Max use once in 24 hour period Discharge Instructions Instructions: C. Diff (Clostridioides Difficile) Infection (GEN) Activity:: Activity as Tolerated Equipment/Supplies:: No Equipment Needed Diet:: Resume usual home diet Discharge Orders Discharge Orders: Discharge Order (Routine); Ordered 06/17/22 Ordered By: Ben Templeton DS: Summary Time Spent with Patient providing and/or coordinating discharge services: Greater than 30 minutes Status at Discharge Functional status at discharge: independent ambulation Overall status at discharge: patient is progressing back to baseline Mental Status: mental status grossly normal Speech and Movement: speech and movement normal Mood: congruent mood Affect: normal affect Exam Narrative Exam Narrative: Elderly, male sitting up in chair. He is alert and oriented person place time c ircumstance. Pleasant and conversant. Chest: barrel chested lungs with some scattered end expiratory coarse wheezes; no rales Heart: regular to slightly tachycardic Abdomen: obese soft nontender no guarding or rebound tenderness normal bowel sounds Extremities without peripheral cyanosis or edema he has well-healed scars from previous peripheral vascular disease. Psych: affect appropriate. Psych Mental Status: mental status grossly normal Speech and Movement: speech and movement normal Mood: congruent mood Affect: normal affect DS: Data Vitals/I&O Vitals and I&O: Vital Signs Temperature 35.8 C L 06/17/22 07:16 Temperature Source Tympanic 06/17/22 07:16 Pulse 63 06/17/22 07:16 Pulse Rhythm Regular 06/17/22 05:09 Pulse 63 06/14/22 06:00 Respiratory Rate 20 06/17/22 07:16 Respiratory Effort 06/17/22 05:09 Respiratory Depth Normal 06/17/22 05:09 Respiratory Pattern Normal 06/17/22 05:09 Blood Pressure 145/82 H 06/17/22 07:16 Blood Pressure Mean 76 06/14/22 18:56 Blood Pressure Position Supine 06/13/22 04:00 Pulse Oximetry 86 L 06/17/22 07:50 Oxygen Delivery Method Room Air 06/17/22 07:50 Oxygen Flow Rate 0 06/17/22 07:50 Fraction of Inspired Oxygen (FIO2) 88 06/14/22 12:22 Pain Level 0 06/17/22 09:26 Comment 06/17/22 09:26 Intake & Output 06/16/22 06/16/22 06/17/22 11:59 23:59 11:59 Intake Total 530 / 1660 1130 / 1660 600 / 600 Output Total 2400 / 3400 1000 / 3400 1500 / 1500 Balance -1870 / -1740 130 / -1740 -900 / -900 Weight 80.3 kg 73 kg Intake: IV 50 / 60 10 / 60 Oral 480 / 1600 1120 / 1600 600 / 600 Output: Urine 2400 / 3400 1000 / 3400 1500 / 1500 Other: Urine Color Yellow Yellow Yellow Urine Appearance Clear Clear Clear Urine Odor Normal None Normal Stool Size Moderate Stool Characteristics Soft Voiding Methods Toilet Toilet Urinal PFSH All Active Problems C. difficile colitis (Acute) Anemia (Chronic) Leukocytosis (Acute) COPD exacerbation (Acute) Discharge planning issues (Acute) DVT prophylaxis (Acute) Generalized weakness (Acute) Acute and chronic respiratory failure with hypoxia (Acute) Depression (Chronic) Atherosclerotic peripheral vascular disease (Chronic) COPD (chronic obstructive pulmonary disease) (Chronic) on home oxygen at 2 to 3 LPM Pneumonia (Acute) Medical History Agent orange exposure NHL (non-Hodgkin's lymphoma) Surgical History S/P femoral-popliteal bypass surgery S/P lobectomy of lung benign lung nodule Social History Smoking/Tobacco Use Status: Former Tobacco Use tobacco type: cigarettes Quit Date: 05/28/15 Pack-years: 100 Tobacco: How many years used: 50 Smoking risk assessment performed?: Yes Alcohol Intake: former Drug use: Never Substance use type: does not use Household members: none Housing: house Number of Children: 2 What is your relationship status?: Panel score (0-1 are the most socially isolated patients): 0 Do you feel safe at home: Yes Do you feel safe in your relationship?: Yes Time Spent with Patient Time Spent with Patient: <45 minutes Time was spent: preparing to see the patient(eg.review tests), indepentently interpreting results and counseling the patient
--- NOTE | 2022-06-17 10:27 | PT.INTREAT ---
PT Notes Visit Reasons: Pneumonia,Acute Hypoxic Respiratory Failure Inpatient Physical Therapy Treatment Note [facility] Date: 06/17/22 SUBJECTIVE: Cayetano states that he is going home after lunch. Offers no complaints to me this am. OBJECTIVE: [] BED MOBILITY/TRANSFERS pt seated in recliner. Sit-stand: I Stand-sit: I GAIT Assistive Device: pushed IV pole. Weight bearing: full Assist: SBA Distance: 50'x2 Deviation: 4L of 02. ASSESSMENT: less SOB today. Independent with transfers as well as self car/ toileting. No c/o SOB, no LOB or instability noted. PLAN: possible d/c home later today. TREATMENT CODE/TIME:20 min. [id number]
[2022-06-17 11:15] VITALS: BP 114/66; PULSE 65; RESP 20; TEMP 36.2; O2SAT 94
--- NOTE | 2022-06-17 11:22 | CMDISCH_ITS ---
- If Service Date Differs Date of service: 06/17/22 Time of Service: 11:22 LACE Index Scoring Tool - Questions: Length of Stay (in days): 4 - 6 Acuity (Admit via E.D.?): Yes Comorbidities: PVD E.D. Visits: 1 - Answers: Total Score: 9 Risk of Readmission: Low Risk Care Management Discharge Reason for Hospitalization: acute and chronic respiratory failure Discharge Plan: Cayetano is discharged home with no services. He will follow up with his PCP at the [facility] and his plan of care as prescribed. He is transported home by family via private vehicle. Patient/Family Education Needs: Review of discharge instructions, limitations, medications and follow up plan of care; discuss Ask Me Three and self management.
[2022-06-17 11:33] VITALS: PULSE 63; RESP 2; O2SAT 96
--- NOTE | 2022-06-19 09:34 | PT.INDS ---
Date of service: 06/19/22 PT Notes Visit Reasons: Pneumonia,Acute Hypoxic Respiratory Failure Physical Therapy Inpatient Discharge Summary Date: 06/19/2022 Dates of Service: 06/13/2022 through 06/17/2022 This is a clinical summary of care provided for the duration of dates listed above. No charge was made in the completion of this documentation. Referring Doctor: Rian Hill MD PT Orders: PT CONSULT: Exacerbation Chroninc Cond Precautions: Fall. Standard. Activity as tolerated. ? On chronic oxygen supplementation via NC. Patient Profile/Admitting Diagnosis:? Cayetano is a 76-year-old male who presented to the ED on 06/12/2022 due to recurrent cough, congestion, and shortness of breath.? Patient was diagnosed with pneumonia 3 weeks ago and was given antibiotic and steroid management but reportedly missed 4 days of antibiotic treatment.? Patient is diagnosed with acute on chronic respiratory failure with hypoxia, pneumonia, COPD, atherosclerotic PVD, melena, and generalized weakness. PMHX: All Active Problems?(Updated 06/12/22 @ 15:42 by Rian Dexter MD) Acute and chronic respiratory failure with hypoxia (Acute) Depression (Chronic) Atherosclerotic peripheral vascular disease (Chronic) COPD (chronic obstructive pulmonary disease) (Chronic) on home oxygen at 2 to 3 LPM Pneumonia (Acute) Medical History?(Updated 06/12/22 @ 15:42 by Rian Dexter MD) Agent orange exposure NHL (non-Hodgkin's lymphoma) Surgical History?(Updated 06/12/22 @ 15:32 by Rian Dexter MD) S/P femoral-popliteal bypass surgery S/P lobectomy of lung benign lung nodule Social History/Home Situation: Lives alone in a private home with 2 steps to enter.? Daughter and son live close by and have been good support.? Patient is independent without assistive device indoors, uses bilateral crutches for outdoor ambulation.? On chronic supplemental 2 L of oxygen per minute via NC due to COPD Equipment Owned/DME: Oxygen supplementation, bilateral axillary crutches Subjective: NT. See most recent OPERATION SHIFT SUPERVISOR notes. Objective: General Observation: NT. See most recent OPERATION SHIFT SUPERVISOR notes. Mental Status: NT. See most recent OPERATION SHIFT SUPERVISOR notes. Pain: NT. See most recent OPERATION SHIFT SUPERVISOR notes. Vital Signs: NT. See most recent OPERATION SHIFT SUPERVISOR notes. ROM: Right Upper Extremity: ? Shoulder Flexion WFL. Shoulder abduction WFL. Elbow flexion WFL. Wrist flexion WFL. Functional opening and closing of hand WFL. Left Upper Extremity:? Shoulder Flexion WFL. Shoulder abduction WFL. Elbow flexion WFL. Wrist flexion WFL. Functional opening and closing of hand WFL. Right Lower Extremity: Hip flexion WFL. Hip abduction WFL. Knee flexion WFL. Ankle dorsiflexion WFL. Ankle plantarflexion WFL. Left Lower Extremity: Hip flexion WFL. Hip abduction WFL. Knee flexion WFL. Ankle dorsiflexion WFL. Ankle plantarflexion WFL. Strength: Right Upper Extremity: Shoulder flexors 4/5. Shoulder abductors 4/5. Elbow flexors 4/5. Elbow extensors 4/5. Boat Outfitter strong. Left Upper Extremity: Shoulder flexors 4/5. Shoulder abductors 4/5. Elbow flexors 4/5. Elbow extensors 4/5. Boat Outfitter strong. Right Lower Extremity: Hip flexors 4/5. Hip abductors 4/5. Knee flexors 4/5. Knee extensors 4/5. Ankle dorsiflexors 4/5. Ankle plantarflexors 4/5. Left Lower Extremity: Hip flexors 4/5. Hip abductors 4/5. Knee flexors 4/5. Knee extensors 4/5. Ankle dorsiflexors 4/5. Ankle plantarflexors 4/5. OBJECTIVE: ? N/T. Please refer to most recent OPERATION SHIFT SUPERVISOR notes. ? BED MOBILITY/TRANSFERS? Sit-stand: independent ? Stand-sit: independent ? GAIT? Assistive Device: Was holding onto IV pole? Weight bearing: FWB Assist: stand by assist ? Distance:? 50 feet x 2 ? Deviation: Decreased judith/gait speed due to breathlessness ? Balance: Static Sitting: Normal Dynamic Sitting: Normal Static Standing: Fair Dynamic Standing: Fair Assessment: Patient requires the use of the front-wheel walker for mobility ADL performance to minimize shortness of breath and hypoxic episodes while reducing risk for fall risk. Patient presents with clinical signs and symptoms consistent with current/admitting diagnoses that have resulted to mobility limitations, gait instability, generalized weakness, and overall ADL decline as demonstrated by the following impairment level findings: 1.? Decreased strength to b UE/LE major muscle groups 2.? Impaired sitting/standing balance 3.? Impaired activity tolerance 4.? Shortness of breath Impairments are contributing to the following functional limitations: 1.? Difficulty with ambulation without assistive device 2.? Increased completion time for mobility ADL performance 3.? Increased risk for falls 4.? Difficulty with managing steps alone safely Goals: Goals X1 week 1. Supine-Sit independent NOT MET 2. Sit-Supine independent NOT MET 3. Sit-Stand independent NOT MET 4. Stand-Sit independent with no AD NOT MET 5. Bed-Chair independent with no AD NOT MET 6. Chair-Bed independent with no AD NOT MET 7. Independent gait on level surface with use of bilateral crutches for at least 300 feet without report of pain nor dyspnea NOT MET 8. Independent stair negotiation while holding onto B? rails for at least 3 steps without report of pain nor dyspnea NOT MET 9. Independent with home exercise program NOT MET 10. Good static and dynamic standing balance/tolerance NOT MET DISCHARGE RECOMMENDATIONS: [] ? Home with no services [] [X] ? Home with services.? Home when medically cleared by hospitalist.? Recommend home health PT services in order to progress mobility level using least restrictive assistive ambulatory device, assess home safety, identify additional equipment needs, and establish a functional maintenance program that will increase ability of patient to remain at home. [] ? Home with outpatient PT [] [] ? SNF for continued rehabilitation [] [] ? Intermediate Care [] [] ? SNF versus LTC based on ability to participate and progress [] TREATMENT CODE/TIME: [] NC Thank you for the opportunity to participate in the care of this patient. Rachel Tsai PT, DPT, CLT [facility] [place], [place]
== END 2022-06-17 13:34 | disposition home or self-care (01) | DRG 193 ==
LOC: ER 13:37 → ICU 13:41 → MS 06-14 19:39
PROVIDERS: Admitting Provider Internal Medicine; Emergency Provider Emergency Medicine; Visit Provider Internal Medicine
DX: J18.9 Pneumonia, unspecified organism (principal); J96.21 Acute and chronic respiratory failure with hypoxia; J44.0 Chronic obstructive pulmonary disease with (acute) lower respiratory infection; K92.1 Melena; A04.72 Enterocolitis due to Clostridium difficile, not specified as recurrent; I70.209 Unspecified atherosclerosis of native arteries of extremities, unspecified extremity; F32.A Depression, unspecified; R53.1 Weakness; Z99.81 Dependence on supplemental oxygen; Z87.891 Personal history of nicotine dependence; Z66 Do not resuscitate; Z85.72 Personal history of non-Hodgkin lymphomas; Z79.01 Long term (current) use of anticoagulants
CPT/HCPCS: 36415; 80053; 82805; 84145; 87449; 87493; 87637; 93005; 94640; 96365; 96375; 97110; 97162; 97530; 99285; 71045; 71046; 82270; 83735; 84484; 85025; 85610; 86140; 87070; 87205; 87581; 87899; 93010; 94667; 94668; 94760; 99231; 99232; 99239; 99291; J0456; J0696; J2543; J2930; J3490; J7512; J7613; J7620

== ENCOUNTER → 2023-07-04 11:17 | Outpatient (CLI) | payer OTHER, SELFPAY ==
--- NOTE | 2023-07-04 12:00 | DI.RAD_ITS ---
Exam(s) XR CHEST 2V PA LATERAL EXAM: XR CHEST 2V PA LATERAL CLINICAL HISTORY: [id number],EXAC OF COPD,H/O PULMONARY HYPERTENSION,COUGH,WHEEZE,j44.1. TECHNIQUE: 2D digital imaging was performed. COMPARISON: CR,XR XR CHEST 2V PA LATERAL from 06/17/2022 FINDINGS: 2 views: Heart size upper normal. The mediastinum is not widened. There is some elevation the right hemidiap hragm unchanged. Multiple healed right-sided rib fractures are again noted as is some scarring in th e right lung. However, the right upper lobe infiltrate which was present 1 year ago is no longer see n. There presently no confluent infiltrates and there are no pleural effusions. No pulmonary edema. Heart size is normal. The mediastinum is not widened. Lungs are clear. No infiltrates nor pleural effusions. IMPRESSION: Right hemithoracic findings as above consisting of lung scarring and multiple healed rib fractures an d unchanged elevation of the right hemidiaphragm.The previously present (May 2022) right upper lo be infiltrate has resolved. There are presently no infiltrates nor pleural effusions. DATA REPOSITORY: RADIATION DOSE DELIVERED:
== END ==
PROVIDERS: PCP Physician Assistant; Visit Provider Physician Assistant
DX: R91.8 Other nonspecific abnormal finding of lung field (principal)
CPT/HCPCS: 71046

== ENCOUNTER 2023-09-26 11:43 | Emergency (ER) | payer OTHER, SELFPAY ==
[2023-09-26] VITALS (16 sets, daily range): BP systolic 149–161; BP diastolic 81–84; PULSE 64–74; RESP 22; TEMP 37.1; O2SAT 95–97
--- NOTE | 2023-09-26 12:15 | ED.GENADUL_ITS ---
Discharge Plan Disposition Patient Disposition: Home Condition: Good Discharge Details Clinical Impression: Traumatic ecchymosis of knee, Elevated blood pressure reading, Closed rib fracture, Contusion of multiple sites Primary Care Provider: Jazmyn Rodriguez ED Provider: Candelaria Rodriges Home Meds and New Rx's Prescriptions: Continued fluoxetine 20 MG capsule 20 mg PO DAILY metoprolol tartrate 25 MG tablet 12.5 mg PO BID simvastatin 10 MG tablet 10 mg PO DAILY clopidogrel [Plavix] 75 MG tablet 75 mg PO DAILY Hold Instructions: Pt Stopped/Never Started aspirin 81 mg Tablet,Delayed Release (Dr/Ec) 81 mg PO DAILY fluticasone propion-salmeterol [Advair Diskus] 250-50 mcg/dose Blister With Device 1 inh INHALATION BID acetaminophen 500 mg Tablet 1,000 mg PO Q6H PRN PRN albuterol sulfate [Ventolin HFA] 90 mcg/actuation Hfa Aerosol Inhaler 2 puff INHALATION QID PRN rivaroxaban 20 mg Tablet 20 mg PO DAILY Rx Instructions: must administer with evening meal Spiriva Respimat 2.5 mcg/actuation Mist 2 puff INHALATION DAILY sildenafil 100 mg Tablet 100 mg PO DAILY PRN Rx Instructions: Max use once in 24 hour period guaifenesin [Mucus Relief ER] 600 mg Tablet Extended Release 12hr 600 mg PO BID Qty: 0 0RF Hold Instructions: Pt Stopped/Never Started Discharge Instructions Instructions: Rib Fracture (ED), Contusion in Adults (ED), Swollen Knee Joint (ED) Additional Instructions: Your imaging is concerning for rib fracture. Please encourage hydration. You may use Tylenol for discomfort, please take as directed on packaging. YOu may also use topical treatments such as heat/ice, Lidoderm patches. Please use your incentive spirometer 5-6 times daily. Encourage hydration. Please follow-up with your primary care provider in 1 week for reevaluation. If you develop any new or worsening symptoms please seek care urgently once again. Please monitor area of your knee. If swelling increases, you develop fevers or chills or other new/worsening symptoms please seek care urgently once again. Referrals: Jazmyn Rodriguez [Primary Care Provider] - Discharge Data Discharge Date/Time-TO BE ENTERED AT DEPARTURE: 09/26/23 15:01 HPI General Date/Time Provider Initiated Documentation: 09/26/23 11:52 . Limitations to Documentation: no limitations . Information obtained by: patient and RN notes reviewed . History of Present Illness 77 year old M presents to the emergency department with the chief complaint of LUQ pain after falling, left knee pain, described as moderate, Quality is described as aching, and is localized to the abdomen and lower extremity. Patient reports no radiation. Patient started experiencing this day(s) and it has been intermittent. Immobilization improves symptom(s), Movement worsens symptoms . Patient notes shortness of breath (chronic, unchanged, denies change in baseline O2 use); denies confusion, chest pain, cough, fever/chills, headaches, loss of appetite, malaise, nausea/vomiting, rash (ecchymosis to left knee), syncope and weakness. Related Data Home Medications Medication Instructions Recorded Confirmed fluoxetine 20 mg capsule 20 mg PO DAILY 03/22/15 09/26/23 metoprolol tartrate 25 mg tablet 12.5 mg PO BID 03/22/15 09/26/23 clopidogrel 75 mg tablet (Plavix) 75 mg PO DAILY 07/23/15 09/26/23 simvastatin 10 mg tablet 10 mg PO DAILY 07/23/15 09/26/23 acetaminophen 500 mg tablet 1,000 mg PO Q6H PRN PRN 06/12/22 09/26/23 albuterol sulfate 90 mcg/actuation 2 puff inhalation QID PRN 06/12/22 09/26/23 aerosol inhaler (Ventolin HFA) aspirin 81 mg tablet,delayed 81 mg PO DAILY 06/12/22 09/26/23 release fluticasone 250 mcg-salmeterol 50 1 inh inhalation BID 06/12/22 09/26/23 mcg/dose blistr powdr for inhalation (Advair Diskus) rivaroxaban 20 mg tablet 20 mg PO DAILY 06/12/22 09/26/23 tiotropium bromide 2.5 2 puff inhalation DAILY 06/12/22 09/26/23 mcg/actuation mist for inhalation (Spiriva Respimat) sildenafil 100 mg tablet 100 mg PO DAILY PRN 06/13/22 09/26/23 guaifenesin 600 mg tablet, 600 mg PO BID #0 tabs 06/17/22 09/26/23 extended release 12 hr (Mucus Relief ER) Previous Rx's Medication Instructions Recorded guaifenesin 600 mg tablet, 600 mg PO BID #0 tabs 06/17/22 extended release 12 hr (Mucus Relief ER) Allergies Allergy/AdvReac Type Severity Reaction Status Date / Time No Known Allergies Allergy Unverified 09/26/23 11:50 General Stated Complaint: Fall/Non TraumaCriteria MADDIE: 3 Review of Systems Constitutional Constitutional: Reports as per HPI, Denies chills, Denies fever(s), Denies headache(s) and Denies weakness Eyes Eyes: Reports as per HPI, Denies blurry vision, Denies change in vision and Denies loss of vision ENT Ears, Nose, Mouth, and Throat: Denies abnormal hearing and Denies headache(s) Cardiovascular Cardiovascular: Reports as per HPI and Denies chest pain Respiratory Respiratory: Reports as per HPI, Denies cough, Denies pain on inspiration and Denies pain with cough Gastrointestinal Gastrointestinal: Reports as per HPI, Denies nausea and Denies vomiting Genitourinary Genitourinary: Reports as per HPI and Denies urinary incontinence Musculoskeletal Musculoskeletal: Reports as per HPI Integumentary/Breasts Skin/Breast: Reports as per HPI and Denies rash Neurologic Neurologic: Reports as per HPI, Denies abnormal hearing, Denies abnormal movements, Denies headache(s), Denies localized weakness, Denies loss of vision, Denies paresthesias and Denies weakness Exam Const General: cooperative, comfortable, no acute distress, well developed, well groomed and ill appearing chronically Nutritional Appearance: well nourished and overweight Orientation: alert, awake and oriented x3 HENMT Head: normal to inspection, no palpable skull fracture, normocephalic and atr aumatic Mouth: lip normal and tongue normal Eyes General: appearance normal, both eyes and all related structures Neck Neck: normal visual inspection, full ROM and trachea midline Chest Chest: normal inspection of the chest, normal palpation of entire chest wall, no crepitus and no localized rib tenderness Resp Effort & Inspection: normal respiratory effort, able to speak in complete sentences and no respiratory distress Auscultation: clear to auscultation bilaterally, no rales, no rhonchi and no wheezes Cardio Rate: regular rate Rhythm: regular rhythm Heart Sounds: S1 normal and S2 normal GI Inspection: normal to inspection, no abdominal wall ecchymosis, no edema and non-distended Palpation: soft, not firm, no guarding, not rigid and tender in the LUQ Auscultation: normal bowel sounds Back/Spine/Pelvis Back: no CVA tenderness Cervical Spine: normal cervical lordosis and cervical ROM normal Thoracic/Lumbar Spine: thoracic and lumbar spine normal to inspection, thoraco- lumbar ROM normal, No thoraco-lumbar ROM limited, No thoraco-lumbar spasm and No thoracic spinal tenderness Pelvis: no pain with anterior-posterior compression and no pain with lateral compression Skin General skin exam: ecchymosis (left knee and medial left thigh) Neuro General: patient alert, patient awake, patient oriented x3, tone normal and moves all extremities Cranial Nerves: CN's II-XI intact bilaterally Cognition: normal cognition Speech: speech normal Motor: muscle tone normal throughout and strength 5/5 throughout Sensory Exam: no sensory deficits noted (no saddle paresthesias) Extrem General: normal to inspection, full ROM, capillary refill normal, no pedal edema and no calf tenderness Left lower extremity: full ROM, normal capillary refill and knee (ecchymosis, full ROM, no focal pain) Details: tenderness (with forced flexion he has generalized tenderness), swelling and normal ROM; no crepitus, no deformity and no unusual warmth; joint enlargement noted (left knee swollen) Course Vital Signs Vital signs: Vital Signs Temperature 37.1 C 09/26/23 11:48 Pulse 74 09/26/23 11:48 Respiratory Rate 22 09/26/23 11:48 Blood Pressure 161/81 H 09/26/23 11:48 Pulse Oximetry 95 09/26/23 11:48 Temperature 37.1 C 09/26/23 11:48 Temperature Source Skin 09/26/23 11:48 Pulse 74 09/26/23 11:48 Respiratory Rate 22 09/26/23 11:48 Respiratory Effort Short of Breath 09/26/23 11:58 Blood Pressure 161/81 H 09/26/23 11:48 Blood Pressure Position Sitting 09/26/23 11:48 Pulse Oximetry 96 09/26/23 12:00 Oxygen Delivery Method Nasal Cannula 09/26/23 12:00 Oxygen Flow Rate 4 09/26/23 12:00 Pain Level 2 09/26/23 11:58 Medical Decision Making Patient is a pleasant 77-year-old male with past medical history significant for COPD, non-Hodgkin's lymphoma, agent orange exposure, status post lobectomy, femoropopliteal bypass, presenting today with chief complaint of left-sided abdominal and chest pain as well as left knee pain. He reports that 4 days ago he tripped over his cat while carrying a large metal pot. He states that he fell forward and landed with the pot against his abdomen. Also struck his left knee. He denies striking his head. Denies any neck pain. No weakness. States that since then pain has persisted if not increased along the left side of his abdomen and lower chest wall. He denies any increase shortness of breath, baseline 4 L nasal cannula. He denies any chest pain. No nausea or vomiting. No change in appetite. Denies any blood in his stool or urine. No change in bowel or bladder habits. Used acetaminophen x 1 earlier this morning. Patient is anticoagulated on rivaroxaban. On exam, patient appears nontoxic. He is hemodynamically stable. Normal car diac exam. No evidence of trauma on the abdomen although he does pain with palpation of the left upper aspect. He does have a umbilical hernia which she reports is unchanged and has been present for past few years. No palpable masses or fractures. No midline tenderness of the C, T or L-spine. No CVA tenderness with percussion. This is a large area of ecchymosis of the left knee and medial thigh, has full range of motion, no evidence of deformity. Particular as patient is anticoagulated, concerned about potential internal bleeding. Will obtain imaging. Will obtain labs and give dose of acetaminophen to help with discomfort. Labs reviewed. No acute abnormality. Patient feeling improved with acetaminophen. Spoke with radiologist, they advised significant for rib fracture. Nodule noted which will also require follow-up. Subacute rib fractures also noted. no other other traumatic findings. Discussed these findings with the patient. Reevaluated, this does correlate with area of discomfort but it does seem to be more in the upper abdomen. Particularly with his comorbidities and pulmonary issues, we discussed at length the risk of him developing pneumonia. He has an incentive spirometer at home and feels comfortable beginning to use this once again. Strict return precautions were discussed. We discussed pain management. Is already oxygen dependent, hesitant to give him narcotics, the acetaminophen did seem to work well for him and encouraged that he continue with this. Will also augment with topical options. Encourage close follow-up with primary care. Patient's not had any increased oxygen demand, as accident was several days ago, I doubt progression of pulmonary contusion or other potential underlying traumatic injury will progress. Patient and I discussed his knee injury. We discussed the use of a brace if you feel that would be helpful. Patient reports that overall, pain in the knee is not significant, not limiting his ambulation. More surprised by the large area of ecchymosis which is likely associated with him being anticoagulated. Encouraged rest, ice, elevation. He will also follow-up with primary care on this injury. All of his questions and concerns were addressed and he is in agreement this plan. Quality:SDOH Health Related Social Needs: No Data to Display PFSH All Active Problems (Updated 09/26/23 @ 14:40 by YENY Cotter) Contusion of multiple sites (Acute) Closed rib fracture (Acute) Elevated blood pressure reading (Acute) Traumatic ecchymosis of knee (Acute) C. difficile colitis (Acute) Anemia (Chronic) Acute and chronic respiratory failure with hypoxia (Acute) Depression (Chronic) Atherosclerotic peripheral vascular disease (Chronic) COPD (chronic obstructive pulmonary disease) (Chronic) on home oxygen at 2 to 3 LPM Pneumonia (Acute) Medical History Agent orange exposure NHL (non-Hodgkin's lymphoma) Surgical History S/P femoral-popliteal bypass surgery S/P lobectomy of lung benign lung nodule Social History Smoking/Tobacco Use Status: Former Tobacco Use tobacco type: cigarettes Quit Date: 05/28/15 Pack-years: 100 Tobacco: How many years used: 50 Smoking risk assessment performed?: Yes Alcohol Intake: current Alcohol Intake frequency: 3 or more drinks per day Alcohol type: beer Drug use: Never Substance use type: does not use Details: pt states 2-6 beers per day Household members: none Housing: house Number of Children: 2 What is your relationship status?: Panel score (0-1 are the most socially isolated patients): 0 Do you feel safe at home: Yes Do you feel safe in your relationship?: Yes
--- NOTE | 2023-09-26 12:15 | DI.RAD_ITS ---
Exam(s) XR KNEE LT 4V AP,LAT,KENYATTA,PAT EXAM: XR KNEE LT 4V AP,LAT,KENYATTA,PAT CLINICAL HISTORY: fall. TECHNIQUE: 2D digital imaging was performed. COMPARISON: No exams were available for comparison FINDINGS: Four views. There is soft tissue swelling anterior to the knee. No evidence of acute fracture nor obvious joint effusion. Mild degenerative changes in the medial compartment. No obvious degenerative changes othe r compartments. Bone density age-appropriate. No osseous lesions. No radiopaque foreign body IMPRESSION: No fractures evident. No joint effusion. DATA REPOSITORY: RADIATION DOSE DELIVERED:
[2023-09-26 12:53] LABS: Abs Immature Grans 0.06 10^3/uL (0.0-0.06); Absolute Basophil Count 0.06 10^3/uL (0.0-0.2); Absolute Eosinophil Count 0.27 10^3/uL (0.0-0.7); Absolute Lymphocyte Count 1.89 10^3/uL (1.2-3.4); Absolute Monocyte Count 0.92 10^3/uL (0.1-0.8); Absolute Neutrophil Count 6.83 10^3/uL (1.2-6.7); Basophils % 0.6 %; Eosinophils % 2.7 %; HCT 42.3 % (40.0-50.0); HGB 13.6 g/dL (13.5-17.5); Immature Grans % 0.6 %; Lymphocytes % 18.8 %; MCH 31.2 pg (27.0-33.0); MCHC 32.2 % (32.0-36.0); MCV 97 fL (80-95); MPV 8.8 fL (8.0-11.0); Monocytes % 9.2 %; Neutrophils % 68.1 %; Platelet Count 226 10^3/uL (130-400); RBC 4.36 10^6/uL (4.36-5.78); RDW 14.3 % (11.8-14.1); RDW-SD 51.6 fL; WBC 10.03 10^3/uL (4.4-10.8)
[2023-09-26] MEDS: Normal Saline 500 ML IV (12:54)
[2023-09-26] MEDS: ACETAMINOPHEN 1,000 MG/100 ML BTL 400 MG IVPB (12:54)
[2023-09-26 13:08] LABS: ALT 25 U/L (16-63); AST 20 U/L (15-37); Albumin 3.2 g/dL (3.4-5.0); Alkaline Phosphatase 63 U/L (46-116); Anion Gap 8.5 mmol/L (3-11); BUN 18 mg/dL (7-18); Bilirubin, Total 0.6 mg/dL (0.2-1.0); CO2 26.5 mmol/L (21.0-32.0); CREATININE 0.9 mg/dL (0.70-1.30); Calcium 8.2 mg/dL (8.5-10.1); Chloride 109 mmol/L (98-107); Estimated GFR 88.51 (mL/min/1.73m2); Glucose 98 mg/dL (74-106); Lipase 22 U/L (16-77); Magnesium 2.1 mg/dL (1.8-2.4); Sodium 144 mmol/L (136-145); Total Protein 7.2 g/dL (6.4-8.2)
[2023-09-26] MEDS: Normal Saline - Diluent 50 ML VIAL IJ (13:36)
[2023-09-26] MEDS: Omnipaque 350 MG/ML 500 ML BTL-Imaging package 100 ML IJ (13:37)
--- NOTE | 2023-09-26 13:44 | DI.CT_ITS ---
Exam(s) CT ABDOMEN PELVIS W EXAM: CT ABDOMEN PELVIS W CLINICAL HISTORY: fall, fell on good on LUQ. TECHNIQUE: Imaging Protocol: Axial computed tomography images with coronal and sagittal reformatted images were created and reviewed CONTRAST MATERIAL: Intravenous: Omnipaque-350 100cc Oral: None COMPARISON: CR XR CHEST 2V PA LATERAL from 07/04/2023 FINDINGS: VISUALIZED LUNG BASES: There is a nonunion fracture of the left 10th rib. There is an acute appearin g fracture of the left 9th rib. Also subtle fracture of the left 8th rib. The entire 8th ribs and r ibs above this level are not included in the field of view of this abdomen study. There are multiple healed right-sided rib fractures also evident. No pleural effusions. No pneumothorax evident. Inc identally noted is a subpleural nodule in the lingular segment of the left lung which measures 8 x 9 mm. Requires follow-up. ABDOMEN: There is no ascites. No evidence of mesenteric nor bowel wall hematoma. LIVER: No laceration. No lesions. No dilated intrahepatic ducts. GALLBLADDER/BILIARY: No obvious gallbladder pathology. CBD is not dilated. PANCREAS: No evidence of pancreatic mass nor dilatation of the pancreatic duct. SPLEEN: Normal size. No laceration. No lesions. Splenic and portal veins are patent. ADRENALS: There are no significant adrenal masses. KIDNEYS:No lacerations. No subcapsular hematomas. Small punctate calculus noted in left kidney. No hydronephrosis. No hydroureter. No calculi in the urinary bladder. The anterior right side of the bladder enters the right inguinal canal inguinal hernia.. ABDOMINAL AORTA: Calcified but not enlarged. Common iliac arteries are also calcified but not enlarg ed. LYMPH NODES:There is no retroperitoneal nor paraaortic adenopathy. ABDOMINAL WALL: There is an anterior abdominal wall fat only containing umbilical hernia. Does not c ontain bowel loops. There is no bowel obstruction. GI: There is no evidence of bowel obstruction, free air, nor abscess. PELVIS: GI: No evidence of appendicitis.No evidence of sigmoid diverticulitis.However, there is a benign-appe aring fat density intimately is with the anterior wall of the mid-upper sigmoid in the left iliac fos sa which measures 1 x 1 cm. (Series 4/image 69). LYMPH NODES: There is no intrapelvic nor inguinal adenopathy. REPRODUCTIVE: Mild prostate enlargement. URINARY BLADDER: Anterior right side of the enters right inguinal canal hernia. OSSEOUS: No fractures and no significant osseous lesions. Unilateral pars defect noted at L5 level. No prominent listhesis evident. IMPRESSION: 1. Left-sided acute rib fractures as well as subacute appearing left rib fractures. The acute appear ing left rib fractures appear to be the 8th and 9th ribs. Ribs above this level are not included in the field of view of this abdominal study. There are multiple chronically healed fractures of ribs o n the opposite-right side. No pleural effusions. No obvious pneumothorax. There is a subpleural no dule measuring 9 mm in the lingular segment of the left lung incidentally noted. 2. No acute trauma sequelae in the abdomen and pelvis. 3. Bilateral inguinal hernias. On the right side the anterior right side of the urinary bladder exte nds 2 cm into the right inguinal hernia canal. 4. Other findings as above. Called by myself to ER provider. RADIATION DOSE DELIVERED: 1,080.48mGy.cm Total DLP DATA REPOSITORY: All CT scans at this facility are submitted to the National Radiology Data Registry (NRDR) Dose Index Registry (DIR) with the [employer] ([employer]). RADIATION OPTIMIZATION: All CT scans at this facility use at least one of these dose optimization te chniques: automated exposure control; mA and/or kV adjustment per patient size (includes targeted exa ms where dose is matched to clinical indication); or iterative reconstruction.
[2023-09-26] MEDS: Lidocaine 5% Patch 1 PATCH TP (14:52)
== END 2023-09-26 15:01 | disposition home or self-care (01) ==
PROVIDERS: Emergency Provider Physician Assistant; PCP Physician Assistant
DX: S80.02XA Contusion of left knee, initial encounter (principal); S70.12XA Contusion of left thigh, initial encounter; S22.32XA Fracture of one rib, left side, initial encounter for closed fracture; J44.9 Chronic obstructive pulmonary disease, unspecified; Z79.02 Long term (current) use of antithrombotics/antiplatelets; Z79.82 Long term (current) use of aspirin; R03.0 Elevated blood-pressure reading, without diagnosis of hypertension; Z87.891 Personal history of nicotine dependence; W01.0XXA Fall on same level from slipping, tripping and stumbling without subsequent striking against object, initial encounter; Y93.01 Activity, walking, marching and hiking; Y92.018 Other place in single-family (private) house as the place of occurrence of the external cause
CPT/HCPCS: 80053; 83690; 96365; 99285; 73564; 74177; 83735; 85025; 99284; J0131

== ENCOUNTER 2023-10-02 10:29 | Emergency (ER) | payer OTHER, SELFPAY ==
[2023-10-02 10:30] VITALS: BP 133/89; PULSE 80; RESP 20; TEMP 36.6; O2SAT 96
[2023-10-02 11:44] VITALS: BP 124/78; PULSE 75; O2SAT 91
--- NOTE | 2023-10-02 11:50 | DI.RAD_ITS ---
Exam(s) XR TIB/FIB LT XR KNEE LT 3V AP,LAT,KENYATTA EXAM: XR KNEE LT 3V AP,LAT,KENYATTA and XR tib/fib LT CLINICAL HISTORY: fall, pain. TECHNIQUE: 2D digital imaging was performed of the left tib/fib and knee. Nine images were obtained . Merchant,AP, lateral and PA tunnel views were obtained. COMPARISON: CR XR KNEE LT 4V AP,LAT,KENYATTA,PAT from 09/26/2023 FINDINGS: BONES: No acute fracture is present. No bony destructive lesion is seen. There is a small plantar ca lcaneal spur. JOINTS: The knee is normally aligned. No joint effusion is seen. No loose body. SOFT TISSUE: There is soft tissue swelling anterior to the knee. There is a well corticated osseous density anterior to the proximal tibia which is unchanged. It may be imbedded in the extensor mechan ism. Vascular calcifications are present. IMPRESSION: 1. No acute fracture or dislocation. 2. Soft tissue swelling anterior to the patella. DATA REPOSITORY: RADIATION DOSE DELIVERED:
--- NOTE | 2023-10-02 12:25 | ED.GENADUL_ITS ---
Discharge Plan Disposition Patient Disposition: Home Discharge Details Clinical Impression: Hematoma of left lower leg, Cellulitis Primary Care Provider: Jazmyn Rodrgiuez ED Provider: Aletha Morataya Home Meds and New Rx's Prescriptions: New cephalexin 500 mg capsule 500 mg PO Q6H 10 Days Qty: 40 0RF Continued fluoxetine 20 MG capsule 20 mg PO DAILY metoprolol tartrate 25 MG tablet 12.5 mg PO BID simvastatin 10 MG tablet 10 mg PO DAILY clopidogrel [Plavix] 75 MG tablet 75 mg PO DAILY Hold Instructions: Pt Stopped/Never Started Patient Comments: pt unsure if he takes this ibuprofen [Advil] 200 mg tablet 600 mg PO TID-QID PRN rivaroxaban [Xarelto] .Route Patient Comments: pt unsure of dosing aspirin 81 mg Tablet,Delayed Release (Dr/Ec) 81 mg PO DAILY fluticasone propion-salmeterol [Advair Diskus] 250-50 mcg/dose Blister With Device 1 inh INHALATION BID acetaminophen 500 mg Tablet 1,000 mg PO Q6H PRN PRN albuterol sulfate [Ventolin HFA] 90 mcg/actuation Hfa Aerosol Inhaler 2 puff INHALATION QID PRN rivaroxaban 20 mg Tablet 20 mg PO DAILY Rx Instructions: must administer with evening meal Spiriva Respimat 2.5 mcg/actuation Mist 2 puff INHALATION DAILY sildenafil 100 mg Tablet 100 mg PO DAILY PRN Rx Instructions: Max use once in 24 hour period guaifenesin [Mucus Relief ER] 600 mg Tablet Extended Release 12hr 600 mg PO BID Qty: 0 0RF Hold Instructions: Pt Stopped/Never Started Discharge Instructions Instructions: Cellulitis (ED), Hematoma (ED) Additional Instructions: take antibiotic as prescribed elevate your leg use the compression stockings recheck in 48 hours tylenol as needed for pain return earlier with new or worsening complaints Discharge Data Discharge Date/Time-TO BE ENTERED AT DEPARTURE: 10/02/23 12:54 HPI General Date/Time Provider Initiated Documentation: 10/02/23 10:39 . HPI Narrative: This 77-year-old male presents after a fall on September 25 receiving x-rays. Had rib fractures states feeling improvement but now has left bolivar pain and redness where hematoma was initially. Knee is feeling improvement. Denies any calf pain or swelling. Denies any chest pain or shortness of breath. Denies any fever or chills. Related Data Home Medications Medication Instructions Recorded Confirmed fluoxetine 20 mg capsule 20 mg PO DAILY 03/22/15 10/02/23 metoprolol tartrate 25 mg tablet 12.5 mg PO BID 03/22/15 10/02/23 clopidogrel 75 mg tablet (Plavix) 75 mg PO DAILY 07/23/15 09/26/23 simvastatin 10 mg tablet 10 mg PO DAILY 07/23/15 10/02/23 acetaminophen 500 mg tablet 1,000 mg PO Q6H PRN PRN 06/12/22 10/02/23 albuterol sulfate 90 mcg/actuation 2 puff inhalation QID PRN 06/12/22 10/02/23 aerosol inhaler (Ventolin HFA) aspirin 81 mg tablet,delayed 81 mg PO DAILY 06/12/22 10/02/23 release fluticasone 250 mcg-salmeterol 50 1 inh inhalation BID 06/12/22 10/02/23 mcg/dose blistr powdr for inhalation (Advair Diskus) rivaroxaban 20 mg tablet 20 mg PO DAILY 06/12/22 10/02/23 tiotropium bromide 2.5 2 puff inhalation DAILY 06/12/22 10/02/23 mcg/actuation mist for inhalation (Spiriva Respimat) sildenafil 100 mg tablet 100 mg PO DAILY PRN 06/13/22 10/02/23 guaifenesin 600 mg tablet, 600 mg PO BID #0 tabs 06/17/22 10/02/23 extended release 12 hr (Mucus Relief ER) cephalexin 500 mg capsule 500 mg PO Q6H 10 days #40 caps 10/02/23 ibuprofen 200 mg tablet (Advil) 600 mg PO TID-QID PRN 10/02/23 10/02/23 rivaroxaban .Route 10/02/23 Previous Rx's Medication Instructions Recorded guaifenesin 600 mg tablet, 600 mg PO BID #0 tabs 06/17/22 extended release 12 hr (Mucus Relief ER) cephalexin 500 mg capsule 500 mg PO Q6H 10 days #40 caps 10/02/23 Allergies Allergy/AdvReac Type Severity Reaction Status Date / Time No Known Allergies Allergy Unverified 10/02/23 10:33 General Stated Complaint: Orthopedic MADDIE: 4 Exam Narrative Exam Narrative: 77-year-old male chronically oxygen dependent presenting alert and oriented, lungs are clear to auscultation, no respiratory distress, cardiac rate rhythm regular, tenderness with palpation to bolivar with overlying erythema, 2 hematomas which patient states are resolving being noted, no posterior calf tenderness or significant swelling, mild swelling to anterior knee, may be small bursa but no evidence of septic arthritis, no redness overlying the joint or ankle joint, neurovascularly intact bilateral lower extremities Course Vital Signs Vital signs: Vital Signs Temperature 36.6 C 10/02/23 10:30 Pulse 80 10/02/23 10:30 Respiratory Rate 20 10/02/23 10:30 Blood Pressure 133/89 10/02/23 10:30 Pulse Oximetry 96 10/02/23 10:30 Temperature 36.6 C 10/02/23 10:30 Temperature Source Skin 10/02/23 10:30 Pulse 75 10/02/23 11:44 Respiratory Rate 20 10/02/23 10:30 Respiratory Effort Short of Breath 10/02/23 10:40 Blood Pressure 124/78 10/02/23 11:44 Blood Pressure Mean 93 10/02/23 11:44 Blood Pressure Position Sitting 10/02/23 11:44 Pulse Oximetry 91 L 10/02/23 11:44 Oxygen Delivery Method Room Air 10/02/23 11:44 Oxygen Flow Rate 0 10/02/23 11:44 Pain Level 0 10/02/23 10:40 Medical Decision Making Alert and oriented 77-year-old male in no acute distress, x-ray of tib-fib and knee did not show evidence of acute abnormality per radiology interpretation my review. No evidence of gas in the tissues and no pain out of proportion to exam. low clinical suspicion for DVT. Suspect cellulitis in the presence of hematoma from trauma. Hemodynamically stable no indication for labs at this time. Will give patient Keflex to treat empirically for cellulitis. 48-hour recheck recommended in the emergency department or with patient's PCP, early return precautions reviewed and patient expressed understanding. No indication for blood work at this time as no evidence of systemic illness and stable vitals. I spent approximately 5 minutes reviewing patient's prior diagnostic imaging from 09/25 and discharge summary from evaluation earlier this week. Quality:SDOH Health Related Social Needs: No Data to Display PFSH All Active Problems (Updated 10/02/23 @ 12:28 by YENY Pathak) Cellulitis (Acute) Hematoma of left lower leg (Acute) Contusion of multiple sites (Acute) Closed rib fracture (Acute) Elevated blood pressure reading (Acute) Traumatic ecchymosis of knee (Acute) C. difficile colitis (Acute) Anemia (Chronic) Acute and chronic respiratory failure with hypoxia (Acute) Depression (Chronic) Atherosclerotic peripheral vascular disease (Chronic) COPD (chronic obstructive pulmonary disease) (Chronic) on home oxygen at 2 to 3 LPM Pneumonia (Acute) Medical History Agent orange exposure NHL (non-Hodgkin's lymphoma) Surgical History S/P femoral-popliteal bypass surgery S/P lobectomy of lung benign lung nodule Social History Smoking/Tobacco Use Status: Former Tobacco Use tobacco type: cigarettes Quit Date: 05/28/15 Pack-years: 100 Tobacco: How many years used: 50 Smoking risk assessment performed?: Yes Alcohol Intake: current Alcohol Intake frequency: 3 or more drinks per day Alcohol type: beer Drug use: Never Substance use type: does not use Details: pt states 2-6 beers per day Household members: none Housing: house Number of Children: 2 What is your relationship status?: Panel score (0-1 are the most socially isolated patients): 0 Do you feel safe at home: Yes Do you feel safe in your relationship?: Yes PAWSS Have you Been Recently Intoxicated or Drunk Within the Last 30 days?: No Have you Ever Experienced Previous Episodes of Alcohol Withdrawal?: No Have you ever Experienced Withdrawal Seizures?: No Have you ever Experienced Delirium Tremens(DT)s?: No Have you ever undergone Alcohol Rehabilitation Treatment (i.e, inpt ot outpatient treatment programs)?: No Have you ever Experienced Blackouts?: No Have you ever Combined Alcohol with other Downers within the last 90 days?: No Have you ever Combined Alcohol with any other Substance of Abuse during the last 90 days?: No Positive Blood Alcohol level on Presentation? [PCS.BAL]: No Evidence of Increased Autonomic Activity (i.e. HR>120, tremor, sweating, agitation, nausea)?: No Result: 0
[2023-10-02 12:46] VITALS: BP 148/79; PULSE 69; O2SAT 94
== END 2023-10-02 12:54 | disposition home or self-care (01) ==
PROVIDERS: Emergency Provider Physician Assistant; PCP Physician Assistant
DX: S80.12XA Contusion of left lower leg, initial encounter (principal); L03.116 Cellulitis of left lower limb; J44.9 Chronic obstructive pulmonary disease, unspecified; F17.210 Nicotine dependence, cigarettes, uncomplicated; Z79.02 Long term (current) use of antithrombotics/antiplatelets; Z79.01 Long term (current) use of anticoagulants; Z79.82 Long term (current) use of aspirin; Z99.81 Dependence on supplemental oxygen; W19.XXXA Unspecified fall, initial encounter
CPT/HCPCS: 73562; 99283; 73590

== ENCOUNTER 2025-05-04 09:44 | Emergency (ER) | payer OTHER, SELFPAY ==
[2025-05-04] VITALS (13 sets, daily range): BP systolic 119–121; BP diastolic 75–93; PULSE 66–89; RESP 20–24; TEMP 36.9; O2SAT 86–94
--- NOTE | 2025-05-04 09:45 | DI.RAD_ITS ---
Exam(s) XR PORTABLE CHEST AP EXAM: XR PORTABLE CHEST AP CLINICAL HISTORY: SOB TECHNIQUE: 2D digital imaging was performed. COMPARISON: CR XR CHEST 2V PA LATERAL from 07/04/2023 FINDINGS: LUNGS: Scarring again noted on the right. Stable mild elevation of the right diaphragm. No pleural abnormality seen. HEART: Upper limits of normal size. AORTA: Normal diameter. BONES: Unrem old right rib fractures. Soft tissues: Unremarkable. IMPRESSION: No acute findings. DATA REPOSITORY: RADIATION DOSE DELIVERED:
--- NOTE | 2025-05-04 09:45 | RT.EKG_ITS ---
APPROVED REPORT Exam: Resting ECG Reason for Exam: Shortness of breath Patient Location: E HR:80 bpm ECG Measurements Heart Rate 80 AXIS NM 193 P 46 QRSd 101 QRS -37 QT 398 T 3 QTc 459 Conclusion Sinus rhythm...normal P axis, V-rate 60- 99 Ventricular premature complex...V complex w/ short R-R interval Left axis deviation...QRS axis (-30,-90) No Occlusion WI
--- NOTE | 2025-05-04 09:47 | W.ED.GENAD ---
Discharge Plan Disposition Patient Disposition: Home Discharge Details Clinical Impression: COPD with acute exacerbation Primary Care Provider: Jazmyn Rodriguez ED Provider: Waylon Garcia Home Meds and New Rx's Prescriptions: New fluticasone propion-salmeterol [Advair Diskus] 250-50 mcg/dose blister with device 1 inh inhalation BID Qty: 60 0RF doxycycline hyclate 100 mg capsule 100 mg PO BID 5 Days Qty: 10 0RF prednisone 50 mg tablet 50 mg PO DAILY Qty: 4 0RF Rx Instructions: Please begin taking tomorrow as you have received steroids in the emergency department ipratropium-albuterol 0.5 mg-3 mg(2.5 mg base)/3 mL solution for nebulization 3 ml inhalation Q6H PRNQty: 180 0RF Continued fluoxetine 20 MG capsule 20 mg PO DAILY metoprolol tartrate 25 MG tablet 12.5 mg PO BID simvastatin 10 MG tablet 10 mg PO DAILY clopidogrel [Plavix] 75 MG tablet 75 mg PO DAILY Patient Comments: pt unsure if he takes this ibuprofen [Advil] 200 mg tablet 600 mg PO TID-QID PRN rivaroxaban [Xarelto] .Route Patient Comments: pt unsure of dosing aspirin 81 mg Tablet,Delayed Release (Dr/Ec) 81 mg PO DAILY fluticasone propion-salmeterol [Advair Diskus] 250-50 mcg/dose Blister With Device 1 inh INHALATION BID acetaminophen 500 mg Tablet 1,000 mg PO Q6H PRN PRN albuterol sulfate [Ventolin HFA] 90 mcg/actuation Hfa Aerosol Inhaler 2 puff INHALATION QID PRN rivaroxaban 20 mg Tablet 20 mg PO DAILY Rx Instructions: must administer with evening meal Spiriva Respimat 2.5 mcg/actuation Mist 2 puff INHALATION DAILY sildenafil 100 mg Tablet 100 mg PO DAILY PRN Rx Instructions: Max use once in 24 hour period guaifenesin [Mucus Relief ER] 600 mg Tablet Extended Release 12hr 600 mg PO BID Qty: 0 0RF Discharge Instructions Additional Instructions: You are seen in the emergency department for shortness of breath. You are having an exacerbation of your COPD for which you should take these antibiotics as directed. Please start taking the steroids tomorrow. Please return to emergency department if you develop any worsening shortness of breath have any fevers or chills or if you have any other concerns. Otherwise please follow-up with your primary care provider. Stand Alone Forms: Portal Information HPI General Date/Time Provider Initiated Documentation: 05/04/25 09:47. HPI Narrative: MDM This is an elderly normothermic and not tachycardic 79-year-old male with acute on chronic respiratory failure with hypoxia. No lower extremity pitting edema to suggest acute heart failure though patient is certainly at risk for HF as he has a systolic ejection murmur concerning for aortic stenosis. No pain out of proportion to suggest necrotizing soft tissue infection. No black or bloody stools to suggest increased risk for GI bleed however will send type and screen. No fevers to suggest pneumonia however will obtain chest x-ray. Patient is not septic but does not cover empirically with broad-spectrum antibiotics. Equal breath sounds and no trauma so doubt pneumothorax. Not hypotensive nor tachycardic so doubt tamponade. Low risk for PE so we will send D-dimer to risk stratify. Given of 85% on arrival suspect patient will require hospitalization. 10:34 AM CBC with no anemia or thrombocytopenia nor leukocytosis. Venous blood gas with no acidemia nor hypercarbia. 11:48 AM Initial reassuring troponin. Basic metabolic panel with no CKD. No TK. No acute electrolyte abnormalities. Normal reassuring magnesium. Markedly elevated D-dimer for which patient will undergo CT angiogram to assess for PE. Repeat troponin with no significant delta. 1 PM COVID swab negative. No influenza or RSV. Chest x-ray with no acute cardiopulmonary process. 1:15 PM Patient had a reassuring CT angiogram with no sign of PE. No pneumonia. He had some emphysematous changes. Will complete amatory trial. 4:30 PM Patient felt improved following his nebulizer treatment. He had oxygen saturations within normal limits on his home 3 L a minute. He reported feeling improved. He passed ambulatory trial and tolerated p.o. in the ED. He requested discharge. Given his reassuring exam without any pneumonia I did not feel he required hospitalization. He understood his return indications. He received first dose of prednisone and doxycycline in the ED. Diagnostic interpretations performed by me: Per my independent interpretation chest x-ray shows: Per my independent interpretation EKG shows: Sinus rhythm at a rate of 80. Left axis deviation no signs of LVH. Poor R wave progression. Interventricular conduction delay. CT and QTc within normal limits. Appears improved compared to prior. HPI This is a patient with a history of chronic obstructive pulmonary disease (COPD) and ischemic heart disease presenting with shortness of breath. The patient reports that he was able to perform activities such as running downstairs without the aid of oxygen until approximately 1.5 weeks ago when he woke up experiencing shortness of breath. This symptom has persisted since then. He reports no fever or chest pain. He is uncertain about the presence of increased phlegm production as he typically swallows it and notes no changes in the consistency of the phlegm. He is not experiencing any episodes of vomiting. His current oxygen therapy is set at 4 liters per minute, although he prefers to maintain it at 3 liters per minute. He utilizes oxygen primarily during activities such as driving or operating his tractor. Reports his symptoms feel improved lying down. No unintentional weight gain. The patient believes that one side of his heart is over-pumping while the other side is compensating for it. Exam General: Elderly-appearing in no acute distress speaking in complete sentences. Head: Normocephalic, atraumatic. Eye:[Pupils equal, round reactive to light.] Extraocular eye movements intact. No conjunctival injection. No scleral icterus. Ear, nose, mouth, throat: Grossly normal inspection. Normal voice, handling secretions normally. Neck: Trachea midline. Cardiovascular: Well-perfused distal extremities. Regular rate and rhythm. Systolic ejection murmur. Respiratory: Nonlabored respiration. Prolonged expiratory phase bilaterally. End expiratory wheezes. No respiratory distress. Gastrointestinal: Nondistended abdomen. Musculoskeletal: No significant lower extremity pitting edema. Edema. Moving all 4 extremities spontaneously. Skin: Normal for age and race, grossly normal temperature and turgor. No acute rash. Neurologic: Alert and appropriate, no apparent acute deficits. Psychiatric: Mood and manner are appropriate. Grooming and personal hygiene are appropriate. Related Data Home Medications ?Medication ?Instructions ?Recorded ?Confirmed fluoxetine 20 mg capsule 20 mg PO DAILY 03/22/15 10/02/23 metoprolol tartrate 25 mg tablet 12.5 mg PO BID 03/22/15 10/02/23 clopidogrel 75 mg tablet (Plavix) 75 mg PO DAILY 07/23/15 09/26/23 simvastatin 10 mg tablet 10 mg PO DAILY 07/23/15 10/02/23 acetaminophen 500 mg tablet 1,000 mg PO Q6H PRN PRN 06/12/22 10/02/23 albuterol sulfate 90 mcg/actuation 2 puff inhalation QID PRN 06/12/22 10/02/23 aerosol inhaler (Ventolin HFA) aspirin 81 mg tablet,delayed 81 mg PO DAILY 06/12/22 10/02/23 release fluticasone 250 mcg-salmeterol 50 1 inh inhalation BID 06/12/22 10/02/23 mcg/dose blistr powdr for inhalation (Advair Diskus) rivaroxaban 20 mg tablet 20 mg PO DAILY 06/12/22 10/02/23 tiotropium bromide 2.5 2 puff inhalation DAILY 06/12/22 10/02/23 mcg/actuation mist for inhalation (Spiriva Respimat) sildenafil 100 mg tablet 100 mg PO DAILY PRN 06/13/22 10/02/23 guaifenesin 600 mg tablet, 600 mg PO BID #0 tabs 06/17/22 10/02/23 extended release 12 hr (Mucus Relief ER) ibuprofen 200 mg tablet (Advil) 600 mg PO TID-QID PRN 10/02/23 10/02/23 rivaroxaban .Route 10/02/23 doxycycline hyclate 100 mg capsule 100 mg PO BID 5 days #10 caps 05/04/25 fluticasone 250 mcg-salmeterol 50 1 inh inhalation BID #60 ea 05/04/25 mcg/dose blistr powdr for inhalation (Advair Diskus) ipratropium 0.5 mg-albuterol 3 mg 3 ml inhalation Q6H PRN #180 mL 05/04/25 (2.5 mg base)/3 mL nebulization soln prednisone 50 mg tablet 50 mg PO DAILY #4 tabs 05/04/25 Previous Rx's ?Medication ?Instructions ?Recorded guaifenesin 600 mg tablet, 600 mg PO BID #0 tabs 06/17/22 extended release 12 hr (Mucus Relief ER) doxycycline hyclate 100 mg capsule 100 mg PO BID 5 days #10 caps 05/04/25 fluticasone 250 mcg-salmeterol 50 1 inh inhalation BID #60 ea 05/04/25 mcg/dose blistr powdr for inhalation (Advair Diskus) ipratropium 0.5 mg-albuterol 3 mg 3 ml inhalation Q6H PRN #180 mL 05/04/25 (2.5 mg base)/3 mL nebulization soln prednisone 50 mg tablet 50 mg PO DAILY #4 tabs 05/04/25 Allergies Allergy/AdvReac Type Severity Reaction Status Date / Time No Known Allergies Allergy Unverified 10/02/23 10:33 General MADDIE: 4 PFSH All Active Problems (Updated 05/04/25 @ 13:42 by Waylon Garcia MD) COPD with acute exacerbation (Acute) C. difficile colitis (Acute) Anemia (Chronic) Acute and chronic respiratory failure with hypoxia (Acute) Depression (Chronic) Atherosclerotic peripheral vascular disease (Chronic) COPD (chronic obstructive pulmonary disease) (Chronic) on home oxygen at 2 to 3 LPM Pneumonia (Acute) Medical History Agent orange exposure NHL (non-Hodgkin's lymphoma) Surgical History S/P femoral-popliteal bypass surgery S/P lobectomy of lung benign lung nodule Social History Smoking/Tobacco Use Status: Former Tobacco Use tobacco type: cigarettes Quit Date: 05/28/15 Pack-years: 100 Tobacco: How many years used: 50 Smoking risk assessment performed?: Yes Alcohol Intake: current Alcohol Intake frequency: 3 or more drinks per day Alcohol type: beer Drug use: Never Substance use type: does not use Details: pt states 2-6 beers per day Household members: none Housing: house Number of Children: 2 What is your relationship status?: Panel score (0-1 are the most socially isolated patients): 0 Do you feel safe at home: Yes Do you feel safe in your relationship?: Yes
[2025-05-04 10:18] LABS: Abs Immature Grans 0.07 10^3/uL (0.0-0.06); BE (Venous) 2 mmol/L (-2-3); HCO3 (Venous) 27 mmol/L (23-28); HCT 43.2 % (40.0-50.0); HGB 13.8 g/dL (13.5-17.5); Immature Grans % 0.8 %; MCH 29.6 pg (27.0-33.0); MCHC 31.9 % (32.0-36.0); MCV 93 fL (80-95); MPV 8.5 fL (8.0-11.0); O2 Sat (Venous) 50 %; Platelet Count 319 10^3/uL (130-400); RBC 4.67 10^6/uL (4.36-5.78); RDW 14.6 % (11.8-14.1); RDW-SD 49.6 fL; TCO2 (Venous) 25 mmol/L (24-29); WBC 8.48 10^3/uL (4.4-10.8); pCO2 (Venous) 46 mmHg (41-51); pO2 (Venous) 28 mmHg
[2025-05-04 10:40] LABS: Magnesium 2.1 mg/dL (1.6-2.6)
[2025-05-04 10:41] LABS: Anion Gap 8 mmol/L (3-11); BUN 17 mg/dL (9-23); CO2 27.0 mmol/L (20.0-31.0); Calcium 8.9 mg/dL (8.3-10.6); Chloride 108 mmol/L (98-107); Glucose 100 mg/dL (74-106); Potassium 4.9 mmol/L (3.5-5.1); Sodium 143 mmol/L (136-145); Troponin I 14 ng/L (<54)
[2025-05-04 10:48] LABS: D-Dimer 2148 ng/mlFEU (<500)
[2025-05-04] MEDS: Doxycycline Hyclate 100 MG CAP PO (11:10)
[2025-05-04] MEDS: Albuterol/Ipratropium 3 ML UPD VIAL UPD (11:11)
[2025-05-04] MEDS: predniSONE 20 MG TAB 60 MG PO (11:11)
[2025-05-04 11:30] LABS: Troponin I 13 ng/L (<54)
[2025-05-04] MEDS: Omnipaque 350 MG/ML 100 ML BTL IJ (12:27)
[2025-05-04 12:28] LABS: COVID-19 PCR Negative (Negative); RSV PCR Negative (Negative)
[2025-05-04] MEDS: Normal Saline Flush 10 ML SYR IVP (12:28)
[2025-05-04] MEDS: Normal Saline - Diluent 50 ML VIAL IJ (12:28)
--- NOTE | 2025-05-04 12:40 | DI.CT_ITS ---
Exam(s) CT CHEST PE CTA EXAM: CT CHEST PE CTA CLINICAL HISTORY: Shortness of breath positive dimer. TECHNIQUE: Imaging Protocol: Axial CT angiography was performed with multi- slice acquisition and multi-planar reconstructions as well as axial, coronal and sagittal MIP reconstructions. Computer aided detection (CAD) was utilized. CONTRAST MATERIAL: Intravenous: Omnipaque 350 Contrast volume:85 ml COMPARISON: CT CT ABDOMEN PELVIS W from 09/26/2023 CR XR PORTABLE CHEST AP from 05/04/2025 FINDINGS: Pulmonary Arteries: Enlarged. No evidence of filling defect to suggest pulmonary emboli. Mediastinum and [place]: No dominant adenopathy or fluid collection. Pulmonary parenchyma: Limited evaluation due to expiratory changes. Emphysematous changes. Suture material posterior right lower lobe and right lower lobe volume loss. No consolidation or dominant measurable mass. Pleura: No effusion or pneumothorax. Heart: The heart is mildly dilated. Severe coronary artery calcifications are seen. Aorta: Thoracic aorta non-dilated. No dissection. Upper abdomen: No acute findings. Bones: Old right rib fractures. Scoliosis and degenerative changes in the spine. Degenerative changes of both shoulders. Tubes, Catheters, and Lines: None Soft tissues: Unremarkable. IMPRESSION: No evidence of pulmonary embolism. Emphysematous changes and right lower lobe scarring. RADIATION DOSE DELIVERED: 102.02mGy.cm Total DLP DATA REPOSITORY: All CT scans at this facility are submitted to the National Radiology Data Registry (NRDR) Dose Index Registry (DIR) with the [employer] (A[employer]). RADIATION OPTIMIZATION: All CT scans at this facility use at least one of these dose optimization techniques: automated exposure control; mA and/or kV adjustment per patient size (includes targeted exams where dose is matched to clinical indication); or iterative reconstruction.
== END 2025-05-04 14:16 | disposition home or self-care (01) ==
PROVIDERS: Emergency Provider Emergency Medicine; PCP Physician Assistant
DX: J44.1 Chronic obstructive pulmonary disease with (acute) exacerbation (principal)
CPT/HCPCS: 99284; 99285; 36415; 71275; 80048; 82805; 86850; 86900; 86901; 87637; 93005; 71045; 83735; 84484; 85025; 85379; 93010; J3490; J7512; J7620